=== PATIENT | female | born 1965 | race Caucasian/White ===

== ENCOUNTER → 2018-02-02 10:59 | Outpatient (CLI) | payer BC, SELFPAY ==
--- NOTE | 2018-02-02 11:13 | MRI_ITS ---
STUDY: MRA OF THE HEAD WITHOUT CONTRAST REASON FOR EXAM: Female, 52 years old. EXERTIONAL HEADACHE, MOSTLY RT SIDED X 5 DAYS. TECHNIQUE: 3-D [id number] (TOF) imaging was performed with MIPs. The study was performed unenhanced. COMPARISON: None. FINDINGS: Normal bilateral petrous carotid arteries. Normal right cavernous carotid artery with a normal supraclinoid bifurcation. Normal left cavernous carotid artery with a normal supraclinoid bifurcation. Normal right A1 segments of the anterior cerebral artery. Normal left A1 segments of the anterior cerebral artery. Normal intact anterior communicating artery (ACOM). Normal bilateral A2 segments of the anterior cerebral arteries. Normal right M1 and M2 segments of the middle cerebral arteries, with a normal M1 bifurcation. Normal left M1 and M2 segments of the middle cerebral arteries, with a normal M1 bifurcation. Normal right posterior communicating artery (PCOM). Normal left posterior communicating artery (PCOM). Normal bilateral vertebral arteries. Normal basilar artery with a normal basilar bifurcation. The visualized bilateral superior cerebellar (SCA) arteries are normal. Normal bilateral P1, P2 and visualized P3 segments of the posterior cerebral arteries. There is no demonstrated aneurysm of the [place]. There is no major vessel occlusion or hemodynamically significant stenosis. There is no demonstrated abnormality of the visualized brain. MRI/MRA Head ONLY without Contrast IMPRESSION: Normal MRA of the head Electronically Signed: Oriana Calloway MD at 13:07 EDT Tel , Service support ,
== END ==
PROVIDERS: Family Provider Family Medicine; PCP Family Medicine; Referring Provider Family Medicine; Visit Provider Family Medicine
DX: G44.84 Primary exertional headache (principal)
CPT/HCPCS: 70544

== ENCOUNTER → 2019-04-20 16:32 | Outpatient (CLI) | payer BC, SELFPAY ==
[2016-12-23 12:31] VITALS: BMI 31.1
--- NOTE | 2019-04-20 16:35 | RAD_ITS ---
STUDY: X-RAY CHEST REASON FOR EXAM: Female, 54 years old. Bronchitis TECHNIQUE: Frontal and lateral views of the chest. COMPARISON: None. FINDINGS: The lungs are clear and expanded. There is no demonstrated pleural abnormality. Normal size heart. Normal mediastinum and brandan. Normal visualized pulmonary arteries. Normal visualized aortic arch and descending thoracic aorta. Normal visualized thoracic spine. Normal visualized ribs, clavicles, and shoulders. There is no demonstrated abnormality of the visualized soft tissue structures of the upper abdomen. RAD/Chest PA and Lateral IMPRESSION: Normal x-ray examination of the chest. Electronically Signed: Reed Rice MD at 23:51 EST , Service support ,
== END ==
PROVIDERS: PCP Family Medicine; Referring Provider Family Medicine; Visit Provider Family Medicine
DX: J40 Bronchitis, not specified as acute or chronic (principal)
CPT/HCPCS: 71046

== ENCOUNTER → 2019-08-22 16:04 | Outpatient (CLI) | payer BC, SELFPAY ==
[2016-12-23 12:31] VITALS: BMI 31.1
--- NOTE | 2019-08-22 16:07 | RAD_ITS ---
STUDY: X-RAY CHEST REASON FOR EXAM: Female, 54 years old. chest wall pain TECHNIQUE: PA and lateral COMPARISON: April 20, 2019 FINDINGS: Minor scarring in the right middle lobe. No focal infiltration is observed There is no demonstrated pleural abnormality. Normal size heart. Normal mediastinum and brandan. Normal visualized pulmonary arteries. Normal visualized aortic arch and descending thoracic aorta. Normal visualized thoracic spine. Normal visualized ribs, clavicles, and shoulders. There is no demonstrated abnormality of the visualized soft tissue structures of the upper abdomen. No significant change since prior exam RAD/Chest PA and Lateral IMPRESSION: No acute cardiopulmonary pathology Electronically Signed: Moy Negrete MD at 22:28 EDT , Service support ,
--- OUTSIDE RECORDS SUMMARY | 2020-01-15 14:56 | XMS RPT_ITS | CCD ---
:1965 External Reference #:[id number] Author Organization [facility] Care Team Providers Name Role Phone Shemar Hooker Primary Care Provider John Pennington Primary Care Provider Allergies Reported Allergen Reaction(s) Severity Date of Onset Location Sulfonamides Other: See Comments 08-14-2015 - Iris weeks [facility] (Antibiotic) ([id number]) Medications Medication Name Sig Date Prescriber Location Aspirin ASPIRIN 325 MG TAB 01-27-[address] [facility] Take one (1) tablet (86093) daily . 0 01/27/2005 Active Comment: Take one (1) tablet daily . Ergocalciferol ergocalciferol, vitamin 12-01-2016 [facility] Provider [facility] D2, (JAMAR) 50,000 unit (8 6242) capsule Take by mouth. 0 12/01/2016 Active Comment: Take by mouth. Glucagon glucagon (GLUCAGON [facility]-18-2018 [facility] EM[facility]GENCY K[facility], HUMAN,) (4419 5) 1 mg solr Inject (1)one mg for insulin shock. 1 Each 1 01/18/2018 Active Comment: Inject (1)one mg for insulin shock. Insulin, Aspart, insulin aspart 03-05-2019 [facility] Patsy [facility] Human U-100 (NOVOLOG Katherine (52411) U-100 INSULIN ASPART) 100 unit/mL soln Up to 50 units daily in insulin pump E10.65. Dispense 90day supply 6 Vial 3 03/05/2019 Active Comment: Up to 50 units daily in insu skinny pump E10.65. Dispense 90day supply levothyroxine levothyroxine 12-12-2019 [facility] (SYNTHROID) 75 mcg [facility] (28562) tablet TAKE 1 TABLET DAILY 90 tablet 3 12/12/2019 Active levothyroxine 07-30-2019 - Dinorah Bradleyjuliethandreia [facility] (SYNTHROID) 50 mcg 12-12-2019 [facility] (76631) tablet TAKE 1 TABLET DAILY WITH 2 TABLETS ON SUNDAYS 102 tablet 3 07/30/2019 12/12/2019 Discontinued Comment: TAKE 1 TABLET DAILY TAKE 1 TABLET DAILY WITH 2 T ABLETS ON SUNDAYS Pravastatin pravastatin 12-05-2019 [facility] Mirnazac [facility] (PRAVACHOL) 20 mg Kellis (25267) tablet Take 0.5 tablets by mouth daily at bedtime. 30 tablet 3 12/05/2019 Active Comment: Take 0.5 tablets by mouth da samir at bedtime. rosuvastatin rosuvastatin (CRESTOR) 10-24-2018 [facility] Patsy [facility] 10 mg tablet Kell[facility] (63072) Indications: Other hyperlipidemia Take 1 tablet by mouth daily at bedtime. 90 tablet 3 10/24/2018 Active Comment: Take 1 tablet by mouth daily at bedtime. Problems Active Problems Category Problem Name Status Date Location Diabetes mellitus with Type 1 diabetes mellitus Active [facility] complications uncontrolled (91751) Diabetes mellitus without Type 1 diabetes mellitus Active [facility] complication (85672) Thyroid disorders Hypothyroidism Active [facility] (48427) Past or Other Problems Category Problem Name Status Date Location Residual codes; FH: Cardiomyopathy Completed 01-15-2016 - [facility] unclassified (45467) Residual codes; Family history of Completed 01-15-2016 - [facility] unclassified ischemic heart disease (4419 5) Results Result Name Value Range Unit Interpretation Flag Date Location [facility] on 2020-01-04 CNPN Telephone (ENDOSO) Normal 01-04-2020 [facility] OFELIA CUTLER ([id number]) 1965 [place] Date Time Provider Department ([id number]) 01/04/20 DINORAH ESTEVESO During your visit today, we recorded the following informati on about you: Sha Day MA, MA 01/04/2020 10:27 AM Signed Received CMN form. Will be in bin to review. Dinorah Esteves MD 01/08/2020 8:26 AM Signed I signed the form. Please fax it back with two office notes which is what they would like. Thanks. MD Sha Santana MA, MA 01/08/2020 2:41 PM Signed Faxed and filed in cabinet. Allergies As of Date: 01/04/2020 Noted Allergy Reaction SULFA (SULFONAMIDE ANTIBIOTICS) 08/14/2015 14 - Other: See C juliet Comments: Nausea Date Reviewed: 12/05/2019 Reviewed by: Veronika Wen Ma - Fully Assessed Reason for Visit: Forms [913] Prescriptions as of 01/04/2020 Sig: LEVOTHYROXINE 75 MCG TABLET TAKE 1 TABLET DAILY PRAVASTATIN 20 MG TABLET Take 0.5 tablets by mouth keisha* CONTOUR TEST STRIPS CONTOUR NEXT TEST STRIPS Use * LANCETS Use as instructed 4x daily E * INSULIN ASPART U-100 100 UNI* Up to 50 units daily in insul* ROSUVASTATIN 10 MG TABLET Take 1 tablet by mouth daily * GLUCAGON (HUMAN RECOMBINANT) * Inject (1)one mg for insulin * ERGOCALCIFEROL (VITAMIN D2) 1* Take by mouth. ASPIRIN 325 MG TABLET Take one (1) tablet daily . Problem List As Of Date 01/04/2020 Noted Resolved Uncontrolled type 1 diabetes mellitus (HCC) [E1* Simple goiter [E04.0] Pure hypercholesterolemia [E78.00] 01/27/2005 06/29/2016 Family history of hypertrophic cardiomyopathy [*01/15/2016 Family history of ischemic heart disease [Z82.4*01/15/2016 Fibroids [D21.9] 06/29/2016 02/02/2017 Encounter Status:Closed by SHA DAY MA on 01/08/20 tsh on 2019-12-05 TSH Qn 5.190 0.270-4.200 uU/mL High 12-05-2019 [facility] ([id number]) Comment: Performed By: #### FT4, TSH ####[facility] [address] [place], [place] [phone] progress on 2019-12 PROGRESS HNO ID: [id number] Normal 12-05-2019 [facility] Author: Dinorah Esteves [place] ([id number]) Service: ? Author Type: Physician Type: Progress Notes Filed: 12/05/2019 11:36 AM Note Text: Endocrine follow up CC type 1 diabetes on a pump, hypothyroid, hyperlipidemia, n eeds foot exam, due for thyroid ultrasound 54 y old woman here for follow up of type 1 diabetes On medtronic 670g pump She was having issues with her sensors. So for a week she took sensor off She tries to use auto mode She reports sometimes the auto mode gets in a cycle that say s sensor not ready Changes reservoir every 3 days She feels like her face is puffy Hard to lose weight Checking bg 3-4 x daily Ros otherwise negative. No change in pmh,family, surgical history ALLERGIES Allergen Reactions - Sulfa (Sulfonamide * Other: See Comments Nausea Current Outpatient Medications Medication Sig - blood sugar diagnostic (CONTOUR TEST STRIPS) test strip CO NTOUR NEXT TEST STRIPS Use as instructed 4x daily. On medtronic pump ich is compatible with this - levothyroxine (SYNTHROID) 50 mcg tablet TAKE 1 TABLET WITH 2 TABLETS ON SUNDAYS - Lancets lancets Use as instructed 4x daily E 10.65 - insulin aspart U-100 (NOVOLOG U-100 INSULIN ASPART) 100 un it/mL soln Up to 50 units daily in insulin pump E10.65. Dispense day sup ply - rosuvastatin (CRESTOR) 10 mg tablet Take 1 tablet by mouth daily at bedtime. - glucagon (GLUCAGON EMERGENCY KIT, HUMAN,) 1 mg solr Inject (1)one mg for insulin shock. - ergocalciferol, vitamin D2, (DRISDOL) 50,000 unit capsule Take by mouth. - ASPIRIN 325 MG TAB Take one (1) tablet daily . No current facility-administered medications for this visit. REVIEW OF SYSTEMS GENERAL: No weight loss, malaise or fevers., SEE HPI HEENT: Negative for frequent or significant headaches, No ch anges in hearing or vision, no nose bleeds or other nasal problems NECK: Negative for lumps, goiter, pain and significant neck swelling RESPIRATORY: +cough CARDIOVASCULAR: Negative for chest pain, leg swelling or pal pitations. GI: Negative for abdominal discomfort, blood in stools or bl ack stools or change in bowel habits MUSCULOSKELETAL: Negative for joint pain or swelling, back p ain or muscle pain. SKIN: Negative for lesions, rash, and itching. : No polyuria or dysuria. HEMATOLOGY/LYMPHOLOGY: Negative for prolonged bleeding, brui sing easily or swollen nodes. ENDOCRINE: Negative for cold or heat intolerance, polyuria, polydipsia and goiter. NEURO: No history of headaches, syncope, paralysis, seizures or tremors All other reviewed and negative other than HPI. BP 106/64 (BP Site: Right Arm, BP Position: Sitting, BP Cuff Size: Extra Large Adult) Pulse 71 Wt 94 kg (207 lb 4 oz) LMP 12/13 (Exact Date) BMI 32.95 kg/m? Physical Examination General: alert and oriented X 3, well appearing, pleasant an d in no acute distress HEENT: eyes without erythema or icterus, no neck lymphadenop athy or mass. Thyroid exam: No goiter or palpable thyroid nodule LN: No palpable cervical or supraclavicular lymphadenopathy. Skin: no rash, no nail changes Cardiac: RRR, no murmur gallop or rub, no peripheral edema Respiratory: CTA bilaterally, no wheezing or rhonchi Gastrointestinal: soft, NT, no palpable masses Musculoskeletal: no notable extremity weakness Neurological: symmetric reflexes bilateral upper and lower e xtremities. CNII-XII intact Feet:Shoes and socks removed, normal distal pulses and sensi tive to 10 gm monofilament (date of exam 12/05/19) Diagnoses: (E10.65) Uncontrolled type 1 diabetes mellitus with hypergly cemia (HCC) (primary encounter diagnosis)(Z96.41) Insulin pump status 7.9% improved but not at goal She reports automode is her favorite and numbers got better on automode (E04.1) Nontoxic single thyroid nodule (E03.9) Hypothyroidism, unspecified type (E78.49) Other hyperlipidemia 1) Type 1 diabetes uncontrolled on insulin pump Type 1 since her teens.A Blood glucose high post dinner. Advise increase prandial ins ulin pre dinner meal Change I:C ratio Advise 1 unit for 3.5g at 2pm -uses novolog in the pump -changes site every 3 days -fu EYE md -podiatry yearly -bp controlled -hypoglycemia protocol reviewed -Check bg before driving -glucagon for emergencies. -brother had HOCM. She had an echo. She had a stress test a few years. -has glucagon at home for emergencies 2) Hyperlipidemia: LDL not at goal. Was not tolerating rosuv astatin 5mg daily.She did not tolerate every other day. Will try pravasa tin 1/2 tab daily for now to see if she tolerates this. 3) Hypothyrodiism on 50mcg LT4 daily with 2 tabs on tuesday. Check tsh today 4) Thyroid nodule-thyroid nodules are subcentimeter. Repeat sonogram in 1-2 years Folow up in 3 months with Annie Esteves MD ENDOCRINE STAFF free t4 on Free T4 [Mass/Vol] 1.1 0.9-1.7 ng/dL Normal 12-05-2019 [facility] ([id number]) Comment: Performed By: #### FT4, TSH ####[facility] [address] [place], [place] [phone] cnov on 2019-12-05 CNOV Office Visit (ENDOSO) Normal 12-05-[address] [place] [address] [facility] OFELIA CUTLER ([id number]) 1965 [place] Date Time Provider Department ([id number]) 12/05/19 11:00 AM DINORAH ESTEVES During your visit today, we recorded the following informati on about you: Pulse Blood pressure Weight 71/minute 106/64 94 kg Dinorah Esteves MD 12/05/2019 11:36 AM Addendum Endocrine follow up CC type 1 diabetes on a pump , hypothyroid, hyperlipidemia, needs foot exam, due for thyroid ultrasound 54 y old woman here for follow up of type 1 diabetes On medtronic 670g pump She was having issues with her sensors. So for a week she took sensor off She tries to use auto mode She reports sometimes the auto mode gets in a cycle that says sensor not ready Changes reservoir every 3 days She feels like her face is puffy Hard to lose weight Checking bg 3-4 x daily Ros otherwise negative. No change in pmh,family, surgical history ALLERGIES Allergen Reactions - Sulfa (Sulfonamide * Other: See Comments Nausea Current Outpatient Medications Medication Sig - blood sugar diagnostic (CONTOUR TEST STRIPS) test strip CONTOUR NEXT TEST STRIPS Use as instructed 4x daily. On medtronic pump which is compatible with this - levothyroxine (SYNTHROID) 50 mcg tablet TAKE 1 TABLET DAILY WITH 2 TABLETS ON SUNDAYS - Lancets lancets Use as instructed 4x daily E 10.65 - insulin aspart U-100 (PILAR LOG U-100 INSULIN ASPART) 100 unit/mL soln Up to 50 units daily in insulin pump E10.65. Dispense supply - rosuvastatin (CRESTOR) 10 mg tablet Ta ke 1 tablet by mouth daily at bedtime. - glucagon (GLUCAGON EMERGENCY KIT, HUMAN,) 1 mg solr Inject (1)one mg for insulin shock. - ergocalciferol, vitamin D2, (DRISDOL) 50,000 unit capsule Take by mouth. - ASPIRIN 325 MG TAB Take one (1) tablet daily . No current facility-administered medications for this visit. REVIEW OF SYSTEMS GENERAL: No weight loss, malaise or fevers., SEE HPI HEENT: Negative for frequent or significant headaches, No changes in hearing or vision, no nose bleeds or other nasal problems NECK: Negative for lumps, goiter, pain and significant neck swelling RESPIRATORY: +cough CARDIOVASCULAR: Negative for chest pain, leg swelling or pal pitations. GI: Negative for abdominal discomfort, blood in stools or bl ack stools or change in bowel habits MUSCULOSKELETAL: Negative fo r joint pain or swelling, back pain or muscle pain. SKIN: Negative for lesions, rash, and itching. : No polyuria or dysuria. HEMATOLOGY/LYMPHOLOGY: Negative for prolonged bleeding, brui sing easily or swollen nodes. ENDOCRINE: Negative for cold or heat intolerance, polyuria, polydipsia and goiter. NEURO: No history of headaches, syncope, paralysis, seizures or tremors All other reviewed and negative other than HPI. BP 106/64 (BP Site: Right Arm, BP Positi on: Sitting, BP Cuff Size: Extra Large Adult) Pulse 71 Wt 94 kg (207 lb 4 oz) LMP 12/13/2016 (Exact Date) BMI 32.95 kg/m? Physical Examination General: alert and oriented X 3, well appearing, pleasant an d in no acute distress HEENT: eyes without erythema or icterus, no neck lymphadenop athy or mass. Thyroid exam: No goiter or palpable thyroid nodule LN: No palpable cervical or supraclavicular lymphadenopathy. Skin: no rash, no nail changes Cardiac: RRR, no murmur gallop or rub, no peripheral edema Respiratory: CTA bilaterally, no wheezing or rhonchi Gastrointestinal: soft, NT, no palpable masses Musculoskeletal: no notable extremity weakness Neurological: symmetric reflexes bilateral upper and lower e xtremities. CNII-XII intact Feet:Shoes and socks removed, normal distal pulses and sensi tive to 10 gm monofilament (date of exam 12/05/19) Diagnoses: (E10.65) Uncontrolled type 1 diabetes mellitus with hypergly cemia (HCC) (primary encounter diagnosis)(Z96.41) Insulin pump status 7.9% improved but not at goal She reports automode is her favorite and numbers got better on automode (E04.1) Nontoxic single thyroid nodule (E03.9) Hypothyroidism, unspecified type (E78.49) Other hyperlipidemia 1) Type 1 diabetes uncontrolled on insulin pump Type 1 since her teens.A Blood glucose high post dinn er. Advise increase prandial insulin pre dinner meal Change I:C ratio Advise 1 unit for 3.5g at 2pm -uses novolog in the pump -changes site every 3 days -fu EYE md -podiatry yearly -bp controlled -hypoglycemia protocol reviewed -Check bg before driving -glucagon for emergencies. -brother had HOCM. She had an echo. She had a stress test a few years. -has glucagon at home for emergencies 2) Hyperlipidemia: LDL not at goal. Was not tolerating rosuv astatin 5mg daily.She did not tolerate every other day. Will try pravasatin 1/2 tab daily for now to see if she tolerates this. 3) Hypothyrodiism on 50mcg LT4 daily with 2 tabs on tuesday . Check tsh today 4) Thyroid nodule-thyroid nodules are subcentimeter. Repea t sonogram in 1-2 years Folow up in 3 months with Annie Esteves MD ENDOCRINE STAFF Dinorah Esteves MD 12/05/2019 11:19 AM Signed Half tab pravastatin daily (10mg instead of 20mg) Allergies As of Date: 12/05/2019 Noted Allergy Reaction SULFA (SULFONAMIDE ANTIBIOTICS) 08/14/2015 14 - Other: See Mundo chung Comments: Nausea Date Reviewed: 12/05/2019 Reviewed by: Veronika Wen Ma - Fully Assessed Reason for Visit: Recheck [92] Primary Visit Diagnosis:Uncontrolled type 1 diabetes mellitu s with hyperglycemia (HCC) [E10.65] Other Visit Diagnoses:Nontoxic single thyroid nodule [E04.1] Hypothyroidism, unspecified type [E03.9] Insulin dose changed (HCC) [Z79.4] Other hyperlipidemia [E78.49] Insulin pump status [Z96.41] Nodular goiter [E04.9] Order(s):HEMOGLOBIN A1C (POC) [0133862] Order #: [id number] HEMOGLOBIN A1C (POC) [0608114] Order #: [id number]. #:[id number] pravastatin (PRAVACHOL) 20 mg tabletTake 0.5 tablets by mout h daily at bedtime.Disp: 30 tabletRfl: 3 TSH BLD [SQTSH] Order #: [id number] FUTURE T4 FREE/FREE THYROX [SQFT4] Order #: [id number] FUTURE LIPID PANEL BASIC [SQLIPB] Order #: [id number] FUTURE ALBUMIN/CREAT RATIO RND UR [SQUACR] Order #: [id number] FUTU RE COMP METABOLIC PANEL [SQCMP] Order #: [id number] FUTURE Prescriptions as of 12/05/2019 Sig: CONTOUR TEST STRIPS CONTOUR NEXT TEST STRIPS Use * LEVOTHYROXINE 50 MCG TABLET TAKE 1 TABLET DAILY WITH 2 TA* LANCETS Use as instructed 4x daily E * INSULIN ASPART U-100 100 UNI* Up to 50 units daily in insul* ROSUVASTATIN 10 MG TABLET Take 1 tablet by mouth daily * GLUCAGON (HUMAN RECOMBINANT) * Inject (1)one mg for insulin * ERGOCALCIFEROL (VITAMIN D2) 1* Take by mouth. ASPIRIN 325 MG TABLET Take one (1) tablet daily . PRAVASTATIN 20 MG TABLET Take 0.5 tablets by mouth keisha* Problem List As Of Date 12/05/2019 Noted Resolved Uncontrolled type 1 diabetes mellitus (HCC) [E1* Simple goiter [E04.0] Pure hypercholesterolemia [E78.00] 01/27/2005 06/29/2016 Family history of hypertrophic cardiomyopathy [*01/15/2016 Family history of ischemic heart disease [Z82.4*01/15/2016 Fibroids [D21.9] 06/29/2016 02/02/2017 Other instructions from your clinician: Half tab pravastatin daily (10mg instead of 20mg) Prescriptions ordered this encounter Disp Refills Start End PRAVASTATIN 20 MG TABLET 30 t* 3 12/05/2019 Route: ORAL Sig: Take 0.5 tablets by mouth daily at bedtime. Encounter Status:Closed by DINORAH ESTEVES MD on 12/05/19 potassium on 2019-0 8-31 Potassium [Moles/Vol] 4.5 3.7-5.1 mmol/L Normal 12-03-19 [facility] ([id number]) cnpn on 2019-10-29 CNPN Telephone (ENDOSO) Normal 10-29-2019 [place] OFELIA Ramírez ([id number]) 1965 [place] Date Time Provider Department ([id number]) 10/29/19 DINORAH CAIN (HIST)ENDOSChina During your visit today, we recorded the following informati on about you: Veronika Wen Ma 10/29/2019 3:18 PM Signed [facility] su [place] approval for Contour Next Test V I Strip 7-22-20-10/23/20placed in file Allergies As of Date: 10/29/2019 Noted Allergy Reaction SULFA (SULFONAMIDE ANTIBIOTICS) 08/14/2015 14 - Other: See C omments Comments: Nausea Date Reviewed: 06/06/2019 Reviewed by: Veronika Wen Ma - Fully Assessed Reason for Visit: PA approval [Other] Prescriptions as of 10/29/2019 Sig: CONTOUR TEST STRIPS CONTOUR NEXT TEST STRIPS Use * LEVOTHYROXINE 50 MCG TABLET TAKE 1 TABLET DAILY WITH 2 TA* LANCETS Use as instructed 4x daily E * INSULIN ASPART U-100 100 UNI* Up to 50 units daily in insul* ROSUVASTATIN 10 MG TABLET Take 1 tablet by mouth daily * GLUCAGON (HUMAN RECOMBINANT) * Inject (1)one mg for insulin * ERGOCALCIFEROL (VITAMIN D2) 1* Take by mouth. ASPIRIN 325 MG TABLET Take one (1) tablet daily . Problem List As Of Date 10/29/2019 Noted Resolved Uncontrolled type 1 diabetes mellitus (HCC) [E1* Simple goiter [E04.0] Pure hypercholesterolemia [E78.00] 01/27/2005 06/29/2016 Family history of hypertrophic cardiomyopathy [*01/15/2016 Family history of ischemic heart disease [Z82.4*01/15/2016 Fibroids [D21.9] 06/29/2016 02/02/2017 Encounter Status:Closed by VERONIKA WEN MA on 10/29/19 [facility] screening on 21-09-25 [facility] SCREENING * * *Final Report* * * Normal [facility] DATE OF EXAM: Sep 28 2019 3:37PM [place] ([id number]) RUST 0581 - [facility] SCREENING / PROCEDURE REASON: multiple diagnoses * * * * Physician Interpretation * * * * RESULT: #[id number] - [facility] SCREENING BILATERAL DIGITAL SCREENING MAMMOGRAM WITH CAD: 09/28/2019 HISTORY: Multiple Diagnoses /Screening Mammogram - patient r eports NO breast symptoms /Priors available for comparison. RESULT: TECHNIQUE: The study was acquired using full field digital t echnology and interpreted from soft copy. Current study was also evaluated with a Computer Aided Detec tion (CAD). Comparison is made to exams dated: 08/30/2018 mammogram, 2017 mammogram, and 08/11/2016 mammogram - [facility]. There are scattered fibroglandular elements in both breasts. No significant masses, calcifications, or other findings are seen in either breast. There has been no significant interval change. IMPRESSION: NEGATIVE There is no mammographic evidence of malignancy. A 1 year sc reening mammogram is recommended. Taylor saldana/teresa:09/28/2019 16:42:49 Banjo Repairer(s): Luisana Mancia RT(R)(M), [facility] letter sent: Normal over 40 Mammogram BI-RADS: 1 Negative Multiple national specialty organizations have released jorge st cancer screening guidelines for women at average risk for developin g breast cancer - guidelines that are based on both evidence and opin ion, yet differ on when to start and how often to screen for breast c ancer. With representation from Breast Imaging, Internal Medicine, Women 's Health, Family Medicine, and Medical/Surgical Oncology, the [facility] has carefully reviewed the data and reached the following consen lj: 1) All women should engage in shared decision-making with eir providers to decide when to start and how often to screen; 2) All women should have the opportunity to start screening mammography at age 40; 3) For women ages 45-55, we recommend annual screening mammo grams; 4) For women ages 55 and over, we support both the transitio n from an annual to a biennial interval if this aligns more with patie nt's values and preferences, or continuation with annual screening; 5) All women should discuss with their providers when to sto p screening mammograms. Hvac Sheet Metal Installer Helper: Teresa Transcribe Date/Time: Sep 28 2019 3:36P Dictated by: TAYLOR SHELTON MD This examination was interpreted and the report reviewed and electronically signed by: TAYLOR SHELTON MD on Sep 28 2019 4:42PM EST [id number] cnco on 2019-09-28 CNCO HNO ID: [id number] Normal 09-28-2019 [facility] Author: Mammography Coordinator ([id number]) Service: ? Author Type: Physician Type: Letter Filed: 10/01/2019 11:35 PM Note Text: September 28, 2019 PID: [id number] Ofelia Cutler [facility] [facility] [place] [address] Dear Ms. Cutler, We are pleased to inform you that the results of your recent breast imaging exam on 09/28/2019 are normal. Early detection of cancer is very important. We also underst and recommendations regarding breast cancer screening are contro versial. Please discuss with your primary care provider which strateg y is best for you and whether a mammogram is right for you. Your imaging studies and report will be kept on file at [facility] as part of your permanent medical record and are available f or your continuing care. Thank you for allowing us to help in meeting your health car e needs. Sincerely, Dr. Shelton Interpreting Radiologist [facility] (Normal over 40) obsolete on 2019-08 OBSOLETE Refill (ENDOSO) Normal 08-15-[address] [facility] OFELIA CUTLER ([id number]) 1965 [facility] Time Provider Department ([id number]) 08/15/19 DINORAH ESTEVES ENDOSO During your visit today, we recorded the following informati on about you: Veronika Wen Ma 08/16/2019 8:32 AM Signed 06/06/19 last appt. Allergies As of Date: 08/15/2019 Noted Allergy Reaction SULFA (SULFONAMIDE ANTIBIOTICS) 08/14/2015 14 - Other: See Mundo chung Comments: Nausea Date Reviewed: 06/06/2019 Reviewed by: Veronika Wen Ma - Fully Assessed Reason for Visit: Refill Request [94] Visit Diagnosis:Uncontrolled type 1 diab etes mellitus with hyperglycemia (HCC) [E10.65] Order(s):blood sugar diagnostic (CONTOUR TEST STRIPS) test stripCONTOUR NEXT TEST STRIPS Use as instructed 4x daily. On medtronic pump wh ich is compatible with thisDisp: 400 StripRfl: 3 Prescriptions as of 08/15/2019 Sig: BLOOD SUGAR DIAGNOSTIC STRIPS CONTOUR NEXT TEST STRIPS Use * LEVOTHYROXINE 50 MCG TABLET TAKE 1 TABLET DAILY WITH 2 TA* LANCETS Use as instructed 4x daily E * INSULIN ASPART U-100 100 UNI* Up to 50 units daily in insul* ROSUVASTATIN 10 MG TABLET Take 1 tablet by mouth daily * GLUCAGON (HUMAN RECOMBINANT) * Inject (1)one mg for insulin * ERGOCALCIFEROL (VITAMIN D2) 1* Take by mouth. ASPIRIN 325 MG TABLET Take one (1) tablet daily . Problem List As Of Date 08/15/2019 Noted Resolved Uncontrolled type 1 diabetes mellitus (HCC) [E1* Simple goiter [E04.0] Pure hypercholesterolemia [E78.00] 01/27/2005 06/29/2016 Family history of hypertrophic cardiomyopathy [*01/15/2016 Family history of ischemic heart disease [Z82.4*01/15/2016 Fibroids [D21.9] 06/29/2016 02/02/2017 Prescriptions ordered this encounter Disp Refills Start End BLOOD SUGAR DIAGNOSTIC STRIPS 400 * 3 08/17/2019 Sig: CONTOUR NEXT TEST STRIPS Use as instructed 4x daily. On medtronic pump which is compatible with this Medications Discontinued During This Encounter blood sugar diagnostic (CONTOUR TEST* 400 * 3 03/05/201908/16 Sig: CONTOUR NEXT TEST STRIP S Use as instructed 4x daily. On medtronic pump which is compatible with this Disc: Reason for discontinue is not on file. Encounter Status:Closed by DINORAH ESTEVES MD on cnpn on 2019-08-01 NATHALIEN Telephone (ENDOSO) Normal 08-01-2019 [place] OFELIA Ramírez ([id number]) 1965 F [place] Date Time Provider Department ([id number]) 08/01/19 DINORAH ESTEVES ENDOSO During your visit today, we recorded the following informati on about you: Angel Luis Saldaña Ma 08/01/2019 3:25 PM Signed Received form from [employer] re: Medtronic Mini Med pump 67 0 [address] Faxing over to Dr Katherine Esteves MD 08/02/2019 10:01 AM Signed The form was signed. Please fax back. Thanks MD Angel Luis Santana Ma 08/02/2019 3:20 PM Signed Form wasn't signed Please sign Angel Luis Saldaña Ma 08/02/2019 4:47 PM Signed Faxed form to [employer] Dinorah Esteves MD 08/03/2019 8:27 AM Signed Signed form and sent back to you. Dinorah Esteves MD Allergies As of Date: 08/01/2019 Noted Allergy Reaction SULFA (SULFONAMIDE ANTIBIOTICS) 08/14/2015 14 - Other: See Mundo chung Comments: Nausea Date Reviewed: 06/06/2019 Reviewed by: Veronika Wen Ma - Fully Assessed Reason for Visit: [employer] forms [Other] Prescriptions as of 08/01/2019 Sig: LEVOTHYROXINE 50 MCG TABLET TAKE 1 TABLET DAILY WITH 2 TA* LANCETS Use as instructed 4x daily E * INSULIN ASPART U-100 100 UNI* Up to 50 units daily in insul* CONTOUR TEST STRIPS CONTOUR NEXT TEST STRIPS Use * ROSUVASTATIN 10 MG TABLET Take 1 tablet by mouth daily * GLUCAGON (HUMAN RECOMBINANT) * Inject (1)one mg for insulin * ERGOCALCIFEROL (VITAMIN D2) 1* Take by mouth. ASPIRIN 325 MG TABLET Take one (1) tablet daily . Problem List As Of Date 08/01/2019 Noted Resolved Uncontrolled type 1 diabetes mellitus (HCC) [E1* Simple goiter [E04.0] Pure hypercholesterolemia [E78.00] 01/27/2005 06/29/2016 Family history of hypertrophic cardiomyopathy [*01/15/2016 Family history of ischemic heart disease [Z82.4*01/15/2016 Fibroids [D21.9] 06/29/2016 02/02/2017 Encounter Status:Closed by ANGEL LUIS SALDAÑA MA on 08/02/19 obsolete on 2019-07 OBSOLETE Refill (ENDOSO) Normal 07-28-[address] [facility] OFELIA CUTLER ([id number]) 1965 F [facility] Time Provider Department ([id number]) 07/28/19 DINORAH ESTEVES ENDOSO During your visit today, we recorded the following informati on about you: Veronika Wen Ma 07/30/2019 9:50 AM Signed 06/06/19 last appt. Allergies As of Date: 07/28/2019 Noted Allergy Reaction SULFA (SULFONAMIDE ANTIBIOTICS) 08/14/2015 14 - Other: See Mundo chung Comments: Nausea Date Reviewed: 06/06/2019 Reviewed by: Veronika Wen Ma - Fully Assessed Reason for Visit: Refill Request [94] Order(s):levothyroxine (SYNTHROID) 50 mcg tabletTAKE 1 TABLE T DAILY WITH 2 TABLETS ON SUNDAYSDisp: 102 tabletRfl: 3 Prescriptions as of 07/28/2019 Sig: LEVOTHYROXINE 50 MCG TABLET TAKE 1 TABLET DAILY WITH 2 TA* LANCETS Use as instructed 4x daily E * INSULIN ASPART U-100 100 UNI* Up to 50 units daily in insul* CONTOUR TEST STRIPS CONTOUR NEXT TEST STRIPS Use * ROSUVASTATIN 10 MG TABLET Take 1 tablet by mouth daily * GLUCAGON (HUMAN RECOMBINANT) * Inject (1)one mg for insulin * ERGOCALCIFEROL (VITAMIN D2) 1* Take by mouth. ASPIRIN 325 MG TABLET Take one (1) tablet daily . Problem List As Of Date 07/28/2019 Noted Resolved Uncontrolled type 1 diabetes mellitus (HCC) [E1* Simple goiter [E04.0] Pure hypercholesterolemia [E78.00] 01/27/2005 06/29/2016 Family history of hypertrophic cardiomyopathy [*01/15/2016 Family history of ischemic heart disease [Z82.4*01/15/2016 Fibroids [D21.9] 06/29/2016 02/02/2017 Prescriptions ordered this encounter Disp Refills Start End LEVOTHYROXINE 50 MCG TABLET 102 * 3 07/30/2019 Sig: TAKE 1 TABLET DAILY WITH 2 TABLETS ON SUNDAYS Medications Discontinued During This Encounter levothyroxine (SYNTHROID) 50 mcg tab* 102 * 3 07/04/20182019 Sig: Take one tab daily with 2 tabs on sundays Disc: Reason for discontinue is not on file. Encounter Status:Closed by DINORAH ESTEVES MD on us thyroid/parathyroid on 2019-06-07 US THYROID/PARATHYROID * * *Final Report* * * Norm al 06-07-2019 [place] DATE OF EXAM: Jun 07 2019 4:09PM [facility] [id number] - US THYROID/PARATHYROID / [place] PROCEDURE REASON: Nontoxic single thyroid nodule ([id number]) * * * * Physician Interpretation * * * * EXAMINATION: THYROID ULTRASOUND CLINICAL HISTORY: Nontoxic single thyroid nodule TECHNIQUE: Sonography and Doppler imaging of the thyroid was performed. Images were obtained and stored in a permanent archive. MQ: UST_1 COMPARISON: Ultrasound thyroid on 01/27/2018 RESULT: Right Lobe: 4.7 x 2.1 x 1.3 cm; diffusely heterogeneous echo texture, expected vascular flow. Left Lobe: 4.5 x 1.9 x 1.4 cm; diffusely heterogeneous echot exture, expected vascular flow. Isthmus: 0.3 cm The most suspicious thyroid nodule(s) (up to four) as below: An echogenic nodule is again demonstrated in the posterior m id right thyroid measuring 6 x 6 x 5 mm, previously 7 x 7 x 5 mm. IMPRESSION: Heterogeneous echotexture of the bilateral thyroid with stab le right thyroid nodule. Hvac Sheet Metal Installer Helper: PSCB Transcribe Date/Time: Jun 07 2019 4:11P Dictated by : HAYDEN LYNNE MD This examination was interpreted and the report reviewed and electronically signed by: HAYDEN LYNNE MD on Jun 07 2019 4:14PM EST [id number] progress on 2019-06 PROGRESS HNO ID: [id number] Normal 06-07-2019 [facility] Author: Nick (Melany) Lavon [place] ([id number]) Service: ? Author Type: Burr Bench Hand Type: Progress Notes Filed: 06/07/2019 4:10 PM Note Text: Radiology Service Progress Note PATIENT NAME: Ofelia Cutler DATE OF SERVICE: June 07, 2019 TIME: 4:10 PM PATIENT IDENTITY VERIFICATION COMPLETED USING TWO (2) IDENTI FIERS: Name and Date of confirmed by patient verbally. PATIENT GENDER DATA: Female. status: : No status: N/A PATIENT RELEVANT IMPLANT DATA REVIEWED: Not Applicable RADIOLOGY DEPARTMENT: Ultrasound PERIPHERAL IV DATA: Not applicable SIGNED BY: NICK CASTANEDA RDMS RVT June 07, 2019 4:10 PM tsh on 2019-06-06 TSH Qn 4.020 0.270-4.200 uU/mL Normal 06-06-2019 [facility] ([id number]) Comment: Performed By: #### HBA1C, TS H, LIPB, BMP #### [facility] [address] [place] [id number] progress on 2019-06 PROGRESS HNO ID: [id number] Normal 06-06-2019 [facility] Author: Dinorah Esteves [place] ([id number]) Service: ? Author Type: Physician Type: Progress Notes Filed: 06/06/2019 10:10 AM Note Text: Endocrine follow up CC type 1 diabetes on a pump, hypothyroid, hyperlipidemia, n eeds foot exam, due for thyroid ultrasound 54 y old woman here for follow up of type 1 diabetes On medtronic 670g pump Asks for calibration every 12 hours but sometimes more She reports that she has been in auto mode more often than l ast visit She calibrated last night before going to bed. Likes auto mode Not taking the rosuvastatin. Taking two tab Tuesday LT4 50mg and 1 tab rest of the week Had viral illness/flu X2 and recently also was tx with ABX Still coughing Ros otherwise negative. No change in pmh,family, surgical history ALLERGIES Allergen Reactions - Sulfa (Sulfonamide * Other: See Comments Nausea Current Outpatient Medications Medication Sig - Lancets lancets Use as instructed 4x daily E 10.65 - insulin aspart U-100 (NOVOLOG U-100 INSULIN ASPART) 100 un it/mL soln Up to 50 units daily in insulin pump E10.65. Dispense sup ply - blood sugar diagnostic (CONTOUR TEST STRIPS) test strip CO NTOUR NEXT TEST STRIPS Use as instructed 4x daily. On medtronic pump wh ich is compatible with this - rosuvastatin (CRESTOR) 10 mg tablet Take 1 tablet by mouth daily at bedtime. - levothyroxine (SYNTHROID) 50 mcg tablet Take one tab daily with 2 tabs on sundays - glucagon (GLUCAGON EMERGENCY KIT, HUMAN,) 1 mg solr Inject (1)one mg for insulin shock. - ergocalciferol, vitamin D2, (DRISDOL) 50,000 unit capsule Take by mouth. - ASPIRIN 325 MG TAB Take one (1) tablet daily . No current facility-administered medications for this visit. REVIEW OF SYSTEMS GENERAL: No weight loss, malaise or fevers., SEE HPI HEENT: Negative for frequent or significant headaches, No ch anges in hearing or vision, no nose bleeds or other nasal problems NECK: Negative for lumps, goiter, pain and significant neck swelling RESPIRATORY: +cough CARDIOVASCULAR: Negative for chest pain, leg swelling or pal pitations. GI: Negative for abdominal discomfort, blood in stools or bl ack stools or change in bowel habits MUSCULOSKELETAL: Negative for joint pain or swelling, back p ain or muscle pain. SKIN: Negative for lesions, rash, and itching. : No polyuria or dysuria. HEMATOLOGY/LYMPHOLOGY: Negative for prolonged bleeding, brui sing easily or swollen nodes. ENDOCRINE: Negative for cold or heat intolerance, polyuria, polydipsia and goiter. NEURO: No history of headaches, syncope, paralysis, seizures or tremors All other reviewed and negative other than HPI. BP 100/60 (BP Site: Right Arm, BP Position: Sitting, BP Cuff Size: Extra Large Adult) Pulse 72 Wt 93.4 kg (206 lb) LMP 12/14/19 17 (Exact Date) BMI 32.75 kg/m? Physical Examination General: alert and oriented X 3, well appearing, pleasant an d in no acute distress HEENT: eyes without erythema or icterus, no neck lymphadenop athy or mass. Thyroid exam: No goiter or palpable thyroid nodule LN: No palpable cervical or supraclavicular lymphadenopathy. Skin: no rash, no nail changes Cardiac: RRR, no murmur gallop or rub, no peripheral edema Respiratory: CTA bilaterally, no wheezing or rhonchi Gastrointestinal: soft, NT, no palpable masses Musculoskeletal: no notable extremity weakness Neurological: symmetric reflexes bilateral upper and lower e xtremities. CNII-XII intact Feet:Shoes and socks removed, normal distal pulses and sensi tive to 10 gm monofilament Diagnoses: (E10.65) Uncontrolled type 1 diabetes mellitus with hypergly cemia (HCC) (primary encounter diagnosis)(Z96.41) Insulin pump status (E04.1) Nontoxic single thyroid nodule (E03.9) Hypothyroidism, unspecified type (E78.49) Other hyperlipidemia 1) Type 1 diabetes uncontrolled on insulin pump Type 1 since her teens.A1c 8.3% which is worse than last visit. The tracings look much better than an a1c of 8.3% so the poor control may have been prior to this. She is still having some hyperglycemia post lunch and dinner so will adju st I:C ratios. See below. Downloaded pump and CGM Has kaylin phenomenon. -I advise she call [employer] given issues with sensor calibr ation. She has some high after lunch and after dinner. Change I:C ratio Advise 1 unit for 4g with breakfast Advise 1 unit for 3.5g at 2pm -uses novolog in the pump -changes site every 3 days -fu EYE md -podiatry yearly. Foot exam done today -bp controlled -hypoglycemia protocol reviewed -Check bg before driving -check BG prior to driving. 2) Hyperlipidemia: LDL not at goal. Was not tolerating rosuv astatin 5mg daily. Advise trying to take it at least every other day.she says she will do so. Lipid panel is in but will likely be abnormal. 3) Hypothyrodiism on 50mcg LT4 daily with 2 tabs on tuesday. Check TSH (ordered) 4) Thyroid nodule-She did not get neck sonogram.I advise krupa t she do so. I will review the images. Dinorah Esteves MD ENDOCRINE STAFF lipid panel, basic on 2019-06-06 Cholesterol [Mass/Vol] 206 <200 mg/dL High 020 [facility] ([id number]) Comment: Result Comment: <200 mg/dL, Desirable 200-239 mg/dL, Borderline hi gh >239 mg/dL, High Performed By: #### HBA1C, TS H, LIPB, BMP #### [facility] [address] [place], [place] [address] Cholesterol in HDL 51 >39 mg/dL Normal 06-06-2019 [facility] [Mass/Vol] ([id number]) Comment: Result Comment: 40-59 mg/dL, Acceptable >59 mg/dL, High: Negative ri sk factor for coronary heart disease <40 mg/dL, Low: Positive ris k factor for coronary heart disease Performed By: #### HBA1C, TS H, LIPB, BMP #### [facility] [place] [place] [address] [place], [place] [address] Cholesterol in LDL 145 <100 mg/dL High 06-06-2019 [facility] [Mass/Vol] ([id number]) Comment: Result Comment: <100 mg/dL, Optimal 100-129 mg/dL, Near optimal/ above optimal 130-159 mg/dL, Borderline hi gh 160-189 mg/dL, High >189 mg/dL, Very high Secondary prevention optimal LDL Cholesterol levels are recommended to be < 70 mg/dL Performed By: #### HBA1C, TS H, LIPB, BMP #### [facility] [address] [place], [place] [address] Fasting Time 12 hrs Normal 06-06-2019 [facility] ([id number]) Comment: Performed By: #### HBA1C, TS H, LIPB, BMP #### [facility] [place] [address] [place], [place] [address] LDL:HDL Ratio 2.84 <2.54 High 06-06-2019 [facility] ([id number]) Comment: Result Comment: Reference: 1. National Cholesterol Educ ation Program ATP III Guideline At-A-Glance Quick Desk Reference: National Heart, Lung, and Blood [place]. National Institutes of Health. 2001: NIH Publication No. 01-3305. 2. An International Atherosc lerosis Society position paper: global recommendations for the management of dyslipidemia: executive summary, Atherosclerosis. 2014: 232(2):410-413. Performed By: #### HBA1C, TS H, LIPB, BMP #### [facility] [address] [place], [place] [address] Non HDL Cholesterol 155 <130 mg/dL High 06-06-2019 [facility] ([id number]) Comment: Result Comment: <130 mg/dL, Optimal 130-159 mg/dL, Near optimal/ above optimal 160-189 mg/dL, Borderline hi gh 190-219 mg/dL, High >219 mg/dL, Very high Secondary prevention optimal non HDL Cholesterol levels are recommended to be < 100 mg/dL Performed By: #### HBA1C, TS H, LIPB, BMP #### [facility] [address] [place] [address] TC:HDL Ratio 4.04 <5.10 Normal 06-06-2019 [facility] ([id number]) Comment: Performed By: #### HBA1C, TS H, LIPB, BMP #### [facility] [address] [place] [address] Triglyceride [Mass/Vol] 52 <150 mg/dL Normal 2019 [facility] ([id number]) Comment: Result Comment: <150 mg/dL, Normal 150-199 mg/dL, Borderline hi gh 200-499 mg/dL, High >499 mg/dL, Very high Performed By: #### HBA1C, TS H, LIPB, BMP #### [facility] [address] [place] [address] VLDL Cholesterol 10 <30 mg/dL Normal 06-06-2019 [facility] ([id number]) Comment: Performed By: #### HBA1C, TS H, LIPB, BMP #### [facility] [address] [place] [id number] hemoglobin a1c on 2 HbA1c (Bld) [Mass fraction] 194 mg/dL Normal [facility] (64091) Comment: Result Comment: eAG: (Estima cara average glucose) is a calculated value from HgbA1c and is service center representative of the average blood glucose level in the last 2-3 month period. Performed By: #### HBA1C, TS H, LIPB, BMP #### [facility] [address] [place], [place] [address] HbA1c (Bld) [Mass fraction] 8.4 4.3-5.6 % High [facility] ([id number]) Comment: Result Comment: [place] Association guidelines indicate that patients with HgbA1c in the range 5.7-6.4% are at increased risk for development of diabetes, and intervention by lifestyle modification may be beneficial. HgbA1c greater o r equal to 6.5% is considered diagnostic of diabetes. Performed By: #### HBA1C, TS H, LIPB, BMP #### [facility] [address] [place], [place] [address] cnov on 2019-06-06 CNOV Office Visit (ENDOSO) Normal 06-06-[address] [place] [address] OFELIA Ramírez ([id number]) 1965 [facility] Date Time Provider Department ([id number]) 06/06/19 9:40 AM DINORAH ESTEVES ENDOSO During your visit today, we recorded the following informati on about you: Pulse Blood pressure Weight 72/minute 100/60 93.4 kg Dinorah Esteves MD 06/06/2019 10:10 AM Addendum Endocrine follow up CC type 1 diabetes on a pump , hypothyroid, hyperlipidemia, needs foot exam, due for thyroid ultrasound 54 y old woman here for follow up of type 1 diabetes On medtronic 670g pump Asks for calibration every 12 hours but sometimes more She reports that she has been in auto mode more often than l ast visit She calibrated last night before going to bed. Likes auto mode Not taking the rosuvastatin. Taking two tab Tuesday LT4 50mg and 1 tab rest of the week Had viral illness/flu X2 and recently also was tx with ABX Still coughing Ros otherwise negative. No change in pmh,family, surgical history ALLERGIES Allergen Reactions - Sulfa (Sulfonamide * Other: See Comments Nausea Current Outpatient Medications Medication Sig - Lancets lancets Use as instructed 4x daily E 10.65 - insulin aspart U-100 (PILAR LOG U-100 INSULIN ASPART) 100 unit/mL soln Up to 50 units daily in insulin pump E10.65. Dispense supply - blood sugar diagnostic (CONTOUR TEST STRIPS) test strip CONTOUR NEXT TEST STRIPS Use as instructed 4x daily. On medtronic pump which is compatible with this - rosuvastatin (CRESTOR) 10 mg tablet Ta ke 1 tablet by mouth daily at bedtime. - levothyroxine (SYNTHROID) 50 mcg tablet Take one tab with 2 tabs on sundays - glucagon (GLUCAGON EMERGENCY KIT, HUMAN,) 1 mg solr Inject (1)one mg for insulin shock. - ergocalciferol, vitamin D2, (DRISDOL) 50,000 unit capsule Take by mouth. - ASPIRIN 325 MG TAB Take one (1) tablet daily . No current facility-administered medications for this visit. REVIEW OF SYSTEMS GENERAL: No weight loss, malaise or fevers., SEE HPI HEENT: Negative for frequent or significant headaches, No changes in hearing or vision, no nose bleeds or other nasal problems NECK: Negative for lumps, goiter, pain and significant neck swelling RESPIRATORY: +cough CARDIOVASCULAR: Negative for chest pain, leg swelling or pal pitations. GI: Negative for abdominal discomfort, blood in stools or bl ack stools or change in bowel habits MUSCULOSKELETAL: Negative fo r joint pain or swelling, back pain or muscle pain. SKIN: Negative for lesions, rash, and itching. : No polyuria or dysuria. HEMATOLOGY/LYMPHOLOGY: Negative for prolonged bleeding, brui sing easily or swollen nodes. ENDOCRINE: Negative for cold or heat intolerance, polyuria, polydipsia and goiter. NEURO: No history of headaches, syncope, paralysis, seizures or tremors All other reviewed and negative other than HPI. BP 100/60 (BP Site: Right Arm, BP Positi on: Sitting, BP Cuff Size: Extra Large Adult) Pulse 72 Wt 93.4 kg (206 lb) LMP 12/13/2016 ( Exact Date) BMI 32.75 kg/m? Physical Examination General: alert and oriented X 3, well appearing, pleasant an d in no acute distress HEENT: eyes without erythema or icterus, no neck lymphadenop athy or mass. Thyroid exam: No goiter or palpable thyroid nodule LN: No palpable cervical or supraclavicular lymphadenopathy. Skin: no rash, no nail changes Cardiac: RRR, no murmur gallop or rub, no peripheral edema Respiratory: CTA bilaterally, no wheezing or rhonchi Gastrointestinal: soft, NT, no palpable masses Musculoskeletal: no notable extremity weakness Neurological: symmetric reflexes bilateral upper and lower e xtremities. CNII-XII intact Feet:Shoes and socks removed, normal distal pulses and sensi tive to 10 gm monofilament Diagnoses: (E10.65) Uncontrolled type 1 diabetes mellitus with hypergly cemia ([facility]) (primary encounter diagnosis)(Z96.41) Insulin pump status (E04.1) Nontoxic single thyroid nodule (E03.9) Hypothyroidism, unspecified type (E78.49) Other hyperlipidemia 1) Type 1 diabetes uncontrol led on insulin pump Type 1 since her teens.A1c 8.3% which is worse than last visit. The tracings look much better than an a1c of 8.3% so the poor control may have been p rior to this. She is still having some hyperglycemia post lunch and dinner so will adjust I:C ratio s. See below. Downloaded pump and CGM Has kaylin phenomenon. -I advise she call [employer] given issues with sensor calibr ation. She has some high after lunch and after dinner. Change I:C ratio Advise 1 unit for 4g with breakfast Advise 1 unit for 3.5g at 2pm -uses novolog in the pump -changes site every 3 days -fu EYE md -podiatry yearly. Foot exam done today -bp controlled -hypoglycemia protocol reviewed -Check bg before driving -check BG prior to driving. 2) Hyperlipidemia: LDL not at goal. Was not tolerating rosuvastatin 5mg daily. Advise trying to take it at least every other day.she says s he will do so. Lipid panel is in but will likely be abnormal. 3) Hypothyrodiism on 50mcg L T4 daily with 2 tabs on tuesday. Check TSH (ordered) 4) Thyroid nodule-She did not get neck sonogram.I advise krupa t she do so. I will review the images. Dinorah Esteves MD ENDOCRINE STAFF Referring Provider: SELF [[id number]] Allergies As of Date: 06/06/2019 Noted Allergy Reaction SULFA (SULFONAMIDE ANTIBIOTICS) 08/14/2015 14 - Other: See C omments Comments: Nausea Date Reviewed: 06/06/2019 Reviewed by: Veronika Wen Ma - Fully Assessed Reason for Visit: F/U Diabetes 6 Month [446] Primary Visit Diagnosis:Uncontrolled type 1 diabetes mellitu s with hyperglycemia (HCC) [E10.65] Other Visit Diagnoses:Nontoxic single thyroid nodule [E04.1] Hypothyroidism, unspecified type [E03.9] Insulin pump status [Z96.41] Other hyperlipidemia [E78.49] Insulin dose changed (HCC) [Z79.4] Order(s):HB A1C B/O [3568466] Order #: [id number] THYROID/PARATHYROID [[id number]] Order #: [id number] FUTURE HEMOGLOBIN A1C (POC) [[id number]] Order #: [id number] #:[id number] Prescriptions as of 06/06/2019 Sig: LANCETS Use as instructed 4x daily E * INSULIN ASPART U-100 100 UNI* Up to 50 units daily in insul* CONTOUR TEST STRIPS CONTOUR NEXT TEST STRIPS Use * ROSUVASTATIN 10 MG TABLET Take 1 tablet by mouth daily * LEVOTHYROXINE 50 MCG TABLET Take one tab daily with 2 tab* GLUCAGON (HUMAN RECOMBINANT) * Inject (1)one mg for insulin * ERGOCALCIFEROL (VITAMIN D2) 1* Take by mouth. ASPIRIN 325 MG TABLET Take one (1) tablet daily . Problem List As Of Date 06/06/2019 Noted Resolved Uncontrolled type 1 diabetes mellitus (HCC) [E1* Simple goiter [E04.0] Pure hypercholesterolemia [E78.00] 01/27/2005 06/29/2016 Family history of hypertrophic cardiomyopathy [*01/15/2016 Family history of ischemic heart disease [Z82.4*01/15/2016 Fibroids [D21.9] 06/29/2016 02/02/2017 Encounter Status:Closed by DINORAH ESTEVES MD on 06/06/19 basic metabolic panl on 2019-06-06 Anion gap [Moles/Vol] 10 9-18 mmol/L Normal 06-06-19 [facility] ([id number]) Comment: Performed By: #### HBA1C, TS H, LIPB, BMP #### [facility] [address] [place], [place] [address] Calcium [Mass/Vol] 9.6 8.5-10.2 mg/dL Normal 06-06-2019 [facility] ([id number]) Comment: Performed By: #### HBA1C, TS H, LIPB, BMP #### [place] [address] Chloride [Moles/Vol] 105 97-105 mmol/L Normal 0 [facility] (47973) Comment: Performed By: #### HBA1C, TS H, LIPB, BMP #### [facility] [place] [id number] [place] [id number] CO2 [Moles/Vol] 25 22-30 mmol/L Normal 06-06-2019 [facility] ([id number]) Comment: Performed By: #### HBA1C, TS H, LIPB, BMP #### [place] [id number] [place] [id number] Creatinine [Mass/Vol] 0.75 0.58-0.96 mg/dL Normal 06-06-19 [facility] ([id number]) Comment: Performed By: #### HBA1C, TS H, LIPB, BMP #### [place] [id number] [place] [address] eGFR- Amer. >60 Normal 06-06-2019 [facility] ([id number]) Comment: Performed By: #### HBA1C, TS H, LIPB, BMP #### [facility] [address] [place], [place] [id number] GFR/1.73 sq M predicted >60 mL/min/{1.73_m2} Normal 06-06-2019 [facility] among non-blacks MDRD [place] ([id number]) (S/P/Bld) [Vol rate/Area] Comment: Result Comment: eGFR (Estima cara GFR) Units of measure: mL/min/1.73 meters squared eGFR is derived from the ree xpressed MDRD Study equation using the following parameters: serum creatinine, age, gender and race. The creatinine assay has been calibrated to be traceable to IDMS. An eGFR <60 mL/min/1.73m2 fo r >3 months is consistent with chronic kidney disease. Refer to KDOQI guidelines for clinical interpretation. In patients with unstable re nal function, e.g. those with acute kidney injury, the eGFR may not accurately reflect actual GFR. Performed By: #### HBA1C, TS H, LIPB, BMP #### [facility] [address] [place], [place] [id number] Glucose [Mass/Vol] 135 74-99 mg/dL High 06-06-2019 [facility] ([id number]) Comment: Result Comment: The [place] Diabetes [employer] (ADA) provides guidance for cutoff values for fasting glucose and random glucose. The ADA defines fasting as no caloric intake for at least 8 hours. Fas ting plasma glucose results between 100 to 125 mg/dL indicate increased risk for diabetes (prediabetes). Fasting plasma glucose resul ts greater than or equal to 126 mg/dL meet the criteria for diagnosis of diabetes. In the absence of unequivocal hyperglycemia, results should be confirmed by repeat testing. In a patient with classic s ymptoms of hyperglycemia or hyperglycemic crisis, random plasma glucose results greater than or equal to 200 mg/dL meet the criteria for diagnosis of diabetes. Reference: Standards of [facility] Care in Diabetes 2016, [place] [employer] Association. Diabetes Care. 2016.39(Suppl 1). Performed By: #### HBA1C, TS H, LIPB, BMP #### [facility] [address] [place], [place] [address] Potassium [Moles/Vol] 5.5 3.7-5.1 mmol/L High 06-06-19 20 [facility] ([id number]) Comment: Performed By: #### HBA1C, TS H, LIPB, BMP #### [facility] [address] [place], [place] [id number] Sodium [Moles/Vol] 140 136-144 mmol/L Normal 06-06-2019 [facility] ([id number]) Comment: Performed By: #### HBA1C, TS H, LIPB, BMP #### [facility] [address] [place], [place] [address] Urea nitrogen [Mass/Vol] 15 7-21 mg/dL Normal 06-05 [facility] ([id number]) Comment: Performed By: #### HBA1C, TS H, LIPB, BMP #### [facility] [address], [place] [address] albumin/creat ratio on 2019-06-06 Albumin Urine Random <12.0 Normal 0 [facility] ([id number]) Comment: Performed By: #### UACR #### [facility] [place], [place] [phone] Albumin/Creat Ratio Not calculated <30 Normal 06-05 [facility] ([id number]) Comment: Performed By: #### UACR #### [facility] [address] [place], [place] [id number]- [phone] Creatinine,Urine,Ran 90.9 20-300 mg/dL Normal 0 [facility] ([id number]) Comment: Performed By: #### UACR #### [facility] [address] [place], [place] [phone]- [phone] obsolete on 2019-03 OBSOLETE Refill (ENDOSO) Normal 03-05-[address] [facility] Marshall CUTLEROFELIA Moses ([id number]) 1965 [address] [place] Date Time Provider Department ([id number]) 03/05/19 DINORAH ESTEVES During your visit today, we recorded the following informati on about you: Veronika Wen Ma 03/05/2019 12:34 PM Signed 01/29/19 last appt. Allergies As of Date: 03/05/2019 Noted Allergy Reaction SULFA (SULFONAMIDE ANTIBIOTICS) 08/14/2015 14 - Other: See C juliet Comments: Nausea Date Reviewed: 01/29/2019 Reviewed by: Dinorah Esteves - Fully Assessed Reason for Visit: Refill Request [94] Visit Diagnosis:Uncontrolled type 1 diab etes mellitus with hyperglycemia (HCC) [E10.65] Order(s):Lancets lancetsUse as instructed 4x daily E 1 0.65Disp: 400 EachRfl: 5 insulin aspart U-100 (NOVOLOG U-100 INSULIN ASPART) 100 unit /mL solnUp to 50 units daily in insulin pump E10.65. Dispense 90 day supplyDisp: 6 VialRfl: 3 blood sugar diagnostic (CONTOUR TEST STRIPS) test stripCONTO UR NEXT TEST STRIPS Use as instructed 4x daily. On medtronic pump wh ich is compatible with thisDisp: 400 StripRfl: 3 Prescriptions as of 03/05/2019 Sig: LANCETS Use as instructed 4x daily E * INSULIN ASPART U-100 100 UNI* Up to 50 units daily in insul* CONTOUR TEST STRIPS CONTOUR NEXT TEST STRIPS Use * ROSUVASTATIN 10 MG TABLET Take 1 tablet by mouth daily * Patient not taking: Reported on 01/29/2019 LEVOTHYROXINE 50 MCG TABLET Take one tab daily with 2 tab* GLUCAGON (HUMAN RECOMBINANT) * Inject (1)one mg for insulin * ERGOCALCIFEROL (VITAMIN D2) 5* Take by mouth. ASPIRIN 325 MG TABLET Take one (1) tablet daily . Problem List As Of Date 03/05/2019 Noted Resolved Uncontrolled type 1 diabetes mellitus (HCC) [E1* Simple goiter [E04.0] Pure hypercholesterolemia [E78.00] 01/27/2005 06/29/2016 Family history of hypertrophic cardiomyopathy [*01/15/2016 Family history of ischemic heart disease [Z82.4*01/15/2016 Fibroids [D21.9] 06/29/2016 02/02/2017 Prescriptions ordered this encounter Disp Refills Start End LANCETS 400 * 5 03/05/2019 Sig: Use as instructed 4x daily E 10.65 INSULIN ASPART U-100 100 UNIT/ML DURHAM* 6 Vi* 3 03/05/2019 Sig: Up to 50 units daily in insulin pump E10.65. Dispense 9 0day supply CONTOUR TEST STRIPS 400 * 3 03/05/2019 Sig: CONTOUR NEXT TEST STRIPS Use as instructed 4x daily. On medtronic pump which is compatible with this Medications Discontinued During This Encounter Lancets lancets 400 * 5 01/18/2018 03/05/2019 Class: Med Update Sig: Use as instructed 4x daily E 10.65 Disc: Reason for discontinue is not on file. insulin aspart U-100 (NOVOLOG U-100 * 6 Vi* 3 06/26/201803/05 Sig: Up to 50 units daily in insulin pump E10.65. Dispense 9 0day supply Disc: Reason for discontinue is not on file. blood sugar diagnostic (CONTOUR TEST* 400 * 3 01/30/201903/05/2019 Sig: CONTOUR NEXT TEST STRIP S Use as instructed 4x daily. On medtronic pump which is compatible with this Disc: Reason for discontinue is not on file. Encounter Status:Closed by DINORAH ESTEVES MD on progress on 2019-01 PROGRESS HNO ID: [id number] Normal 01-29-2019 [facility] Author: Dinorah Esteves [place] ([id number]) Service: ? Author Type: Physician Type: Progress Notes Filed: 01/29/2019 10:44 AM Note Text: Endocrine Consultation Note CC type 1 diabetes on pump 53 y old woman here for evaluation of uncontrolled type 1 di abetes. Has the 670g and has sensor. Uses auto mode Reports BG running high in am No frequent hypoglycemia Was diagnosed at age 16 Uses novolog in pump bayour contour meter Downloaded pump On 50mcg levothyroxine with 2 tabs on Tuesday for thyroid Not tolerating rosuvastatin 5mg. ROS otherwise negative PAST MEDICAL HISTORY Diagnosis Date - Fibroids 06/29/2016 - Goiter, specified as simple - Hx of lumpectomy 1999 Left Breast - Type I (juvenile type) diabetes mellitus without mention o f complication, uncontrolled (HCC) FAMILY HISTORY Problem Relation Age of Onset - Heart Father - Heart Maternal Grandfather - Breast Cancer Paternal Grandmother - Colon Cancer Sister 45 PAST SURGICAL HISTORY Procedure Laterality Date - LUMPECTOMY/RADIOTHERAPY DIAG MAMM/A10 08/03/99 L breast - benign - PARAG W/WO REMOVAL TUBE OVARY Bilateral 12/23/2016 PARAG, bilateral salpingectomy ALLERGIES Allergen Reactions - Sulfa (Sulfonamide * Other: See Comments Nausea Current Outpatient Medications: blood sugar diagnostic (CONTOUR TEST STRIPS) test strip Use as instructed 4x daily. On medtronic pump which is compatible with this levothyroxine (SYNTHROID) 50 mcg tablet Take one tab daily w ith 2 tabs on sundays insulin aspart U-100 (NOVOLOG U-100 INSULIN ASPART) 100 unit /mL soln Up to 50 units daily in insulin pump E10.65. Dispense supply Lancets lancets Use as instructed 4x daily E 10.65 glucagon (GLUCAGON EMERGENCY KIT, HUMAN,) 1 mg solr Inject ( 1)one mg for insulin shock. ergocalciferol, vitamin D2, (DRISDOL) 50,000 unit capsule Ta ke by mouth. ASPIRIN 325 MG TAB Take one (1) tablet daily . rosuvastatin (CRESTOR) 10 mg tablet Take 1 tablet by mouth d aily at bedtime. (Patient not taking: Reported on 01/29/2019 ) No current facility-administered medications for this visit. REVIEW OF SYSTEMS GENERAL: No weight loss, malaise or fevers., SEE HPI HEENT: Negative for frequent or significant headaches, No ch anges in hearing or vision, no nose bleeds or other nasal problems NECK: Negative for lumps, goiter, pain and significant neck swelling RESPIRATORY: Negative for cough, wheezing or shortness of br eath. CARDIOVASCULAR: Negative for chest pain, leg swelling or pal pitations. GI: Negative for abdominal discomfort, blood in stools or bl ack stools or change in bowel habits MUSCULOSKELETAL: Negative for joint pain or swelling, back p ain or muscle pain. SKIN: Negative for lesions, rash, and itching. : No polyuria or dysuria. HEMATOLOGY/LYMPHOLOGY: Negative for prolonged bleeding, brui sing easily or swollen nodes. ENDOCRINE: Negative for cold or heat intolerance, polyuria, polydipsia and goiter. NEURO: No history of headaches, syncope, paralysis, seizures or tremors All other reviewed and negative other than HPI. BP 100/60 (BP Site: Right Arm, BP Position: Sitting, BP Cuff Size: Large Adult) Pulse 70 Wt 93.4 kg (206 lb) LMP 12/13/2016 (Ex act Date) BMI 32.75 kg/m? Physical Examination General: alert and oriented X 3, well appearing, pleasant an d in no acute distress HEENT: eyes without erythema or icterus, no neck lymphadenop athy or mass. Thyroid exam: No goiter or palpable thyroid nodule LN: No palpable cervical or supraclavicular lymphadenopathy. Skin: no rash, no nail changes Cardiac: RRR, no murmur gallop or rub, no peripheral edema Respiratory: CTA bilaterally, no wheezing or rhonchi Gastrointestinal: soft, NT, no palpable masses Musculoskeletal: no notable extremity weakness Neurological: symmetric reflexes bilateral upper and lower e xtremities. CNII-XII intact Component Latest Ref Rng AND Units 01/18/2018 Protein, Total 6.3 - 8.0 g/dL 7.0 Albumin 3.9 - 4.9 g/dL 4.0 Calcium 8.5 - 10.2 mg/dL 9.5 Bilirubin, Total 0.2 - 1.3 mg/dL 0.3 Alkaline Phosphatase 34 - 123 U/L 63 AST 13 - 35 U/L 12 (L) Glucose 74 - 99 mg/dL 128 (H) BUN 7 - 21 mg/dL 14 Creatinine 0.58 - 0.96 mg/dL 0.68 Sodium 136 - 144 mmol/L 140 Potassium 3.7 - 5.1 mmol/L 4.0 Chloride 97 - 105 mmol/L 103 CO2 22 - 30 mmol/L 25 Anion Gap 9 - 18 mmol/L 12 ALT 7 - 38 U/L 10 eGFR- >60 eGFR-All Other Races . >60 Cholesterol, Total <200 mg/dL 201 (H) Triglyceride <150 mg/dL 45 HDL Cholesterol >39 mg/dL 58 LDL Cholesterol <100 mg/dL 134 (H) Non HDL Cholesterol <130 mg/dL 143 (H) Fasting Time hrs 6 VLDL Cholesterol <30 mg/dL 9 TC:HDL Ratio <5.10 3.47 LDL:HDL Ratio <2.54 2.31 Creatinine, Ur Random (UCRR) 20 - 300 mg/dL 59.5 Albumin, Urine Random 0.0 - 23.0 mg/L <12.0 Albumin/Creat Ratio 0 - 30 mg/g Not calculated Hemoglobin A1C (POCT) 4.2 - 5.6 % 7.8 (A) TSH 0.400 - 5.500 uU/mL 3.590 Free T4 0.9 - 1.7 ng/dL 1.1 -- Uncontrolled type 1 diabetes with hypothyroidism-Ac 7.9% 1) Type 1 diabetes uncontrolled on insulin pump Has kaylin phenomenon. In auto mode less than 60% of the time. Discussed that auto mode will be helpful rodrigo with Kaylin phenomenon. BG running higher later in day seems to be post prandial. Advise changing I:C ratio 1 unit for 4g at 14pm. -changes site every 3 days -fu EYE md -podiatry yearly -bp controlled -hypoglycemia protocol reviewed -Check bg before driving 2) Hyperlipidemia: LDL not at goal. Was not tolerating rosuv astatin 5mg daily. Advise trying to take it at least every other day. Re peat lipids at followup 3) Hypothyrodiism on 50mcg LT4 daily with 2 tabs on tuesday. TSH upper end of normal. Repeat TSH with next set of labs. 4) Thyroid nodule-repeat ultrasound 01/2019. Check neck sono gram. Ordered. Will review images. Patient got flu shot today FU OV 4 months Dinorah Esteves MD ENDOCRINE STAFF physician cnov on 2019-01-29 CNOV Office Visit (ENDOSO) Normal 01-30-20 19 [place] OFELIA Ramírez ([id number]) 1965 [place] Date Time Provider Department ([id number]) 01/29/19 10:00 AM DINORAH ESTEVES During your visit today, we recorded the following informati on about you: Pulse Blood pressure Weight 70/minute 100/60 93.4 kg Dinorah Esteves MD 01/29/2019 10:44 AM Signed Endocrine Consultation Note CC type 1 diabetes on pump 53 y old woman here for evaluation of uncontrolled type 1 di abetes. Has the 670g and has sensor. Uses auto mode Reports BG running high in am No frequent hypoglycemia Was diagnosed at age 16 Uses novolog in pump [facility] contour meter Downloaded pump On 50mcg levothyroxine with 2 tabs on Tuesday for thyroid Not tolerating rosuvastatin 5mg. ROS otherwise negative PAST MEDICAL HISTORY Diagnosis Date - Fibroids 06/29/2016 - Goiter, specified as simple - Hx of lumpectomy 1999 Left Breast - Type I (juvenile type) diabetes mellitus without mention of complication, uncontrolled (HCC) FAMILY HISTORY Problem Relation Age of Onset - Heart Father - Heart Maternal Grandfather - Breast Cancer Paternal Grandmother - Colon Cancer Sister 45 PAST SURGICAL HISTORY Procedure Laterality Date - LUMPECTOMY/RADIOTHERAPY DIAG MAMM/A10 08/03/99 L breast - benign - PARAG W/WO REMOVAL TUBE OVARY Bilateral 12/23/2016 PARAG, bilateral salpingectomy ALLERGIES Allergen Reactions - Sulfa (Sulfonamide * Other: See Comments Nausea Current Outpatient Medications: blood sugar diagnostic (CONTOUR TEST STRIPS) test stri p Use as instructed 4x daily. On medtronic pump which is compatible with this levothyroxine (SYNTHROID) 50 mcg tablet Take one tab daily w ith 2 tabs on sundays insulin aspart U-100 (NOVOLOG U-100 INSULIN ASPA RT) 100 unit/mL soln Up to 50 units daily in insulin pump E10.65. Dispense supply Lancets lancets Use as instructed 4x daily E 10.65 glucagon (GLUCAGON EMERGENCY KIT, HUMAN,) 1 mg solr Inject ( 1)one mg for insulin shock. ergocalciferol, vitamin D2, (DRISDOL) 50,000 unit capsule Ta ke by mouth. ASPIRIN 325 MG TAB Take one (1) tablet daily . rosuvastatin (CRESTOR) 10 mg tablet Take 1 tablet by m outh daily at bedtime. (Patient not taking: Reported on 01/29/2019 ) No current facility-administered medications for this visit. REVIEW OF SYSTEMS GENERAL: No weight loss, malaise or fevers., SEE HPI HEENT: Negative for frequent or significant headaches, No changes in hearing or vision, no nose bleeds or other nasal problems NECK: Negative for lumps, goiter, pain and significant neck swelling RESPIRATORY: Negative for cough, wheezing or shortness of br eath. CARDIOVASCULAR: Negative for chest pain, leg swelling or pal pitations. GI: Negative for abdominal discomfort, blood in stools or bl ack stools or change in bowel habits MUSCULOSKELETAL: Negative fo r joint pain or swelling, back pain or muscle pain. SKIN: Negative for lesions, rash, and itching. : No polyuria or dysuria. HEMATOLOGY/LYMPHOLOGY: Negative for prolonged bleeding, brui sing easily or swollen nodes. ENDOCRINE: Negative for cold or heat intolerance, polyuria, polydipsia and goiter. NEURO: No history of headaches, syncope, paralysis, seizures or tremors All other reviewed and negative other than HPI. BP 100/60 (BP Site: Right Ar m, BP Position: Sitting, BP Cuff Size: Large Adult) Pulse 70 Wt 93.4 kg (206 lb) LMP 12/13/2016 (Exact Zachariah e) BMI 32.75 kg/m? Physical Examination General: alert and oriented X 3, well appearing, pleasant an d in no acute distress HEENT: eyes without erythema or icterus, no neck lymphadenop athy or mass. Thyroid exam: No goiter or palpable thyroid nodule LN: No palpable cervical or supraclavicular lymphadenopathy. Skin: no rash, no nail changes Cardiac: RRR, no murmur gallop or rub, no peripheral edema Respiratory: CTA bilaterally, no wheezing or rhonchi Gastrointestinal: soft, NT, no palpable masses Musculoskeletal: no notable extremity weakness Neurological: symmetric reflexes bilateral upper and lower e xtremities. CNII-XII intact Component Latest Ref Rng AND Units 01/18/2018 Protein, Total 6.3 - 8.0 g/dL 7.0 Albumin 3.9 - 4.9 g/dL 4.0 Calcium 8.5 - 10.2 mg/dL 9.5 Bilirubin, Total 0.2 - 1.3 mg/dL 0.3 Alkaline Phosphatase 34 - 123 U/L 63 AST 13 - 35 U/L 12 (L) Glucose 74 - 99 mg/dL 128 (H) BUN 7 - 21 mg/dL 14 Creatinine 0.58 - 0.96 mg/dL 0.68 Sodium 136 - 144 mmol/L 140 Potassium 3.7 - 5.1 mmol/L 4.0 Chloride 97 - 105 mmol/L 103 CO2 22 - 30 mmol/L 25 Anion Gap 9 - 18 mmol/L 12 ALT 7 - 38 U/L 10 eGFR- >60 eGFR-All Other Races . >60 Cholesterol, Total <200 mg/dL 201 (H) Triglyceride <150 mg/dL 45 HDL Cholesterol >39 mg/dL 58 LDL Cholesterol <100 mg/dL 134 (H) Non HDL Cholesterol <130 mg/dL 143 (H) Fasting Time hrs 6 VLDL Cholesterol <30 mg/dL 9 TC:HDL Ratio <5.10 3.47 LDL:HDL Ratio <2.54 2.31 Creatinine, Ur Random (UCRR) 20 - 300 mg/dL 59.5 Albumin, Urine Random 0.0 - 23.0 mg/L <12.0 Albumin/Creat Ratio 0 - 30 mg/g Not calculated Hemoglobin A1C (POCT) 4.2 - 5.6 % 7.8 (A) TSH 0.400 - 5.500 uU/mL 3.590 Free T4 0.9 - 1.7 ng/dL 1.1 -- Uncontrolled type 1 diabetes with hypothyroidism-Ac 7.9% 1) Type 1 diabetes uncontrolled on insulin pump Has kaylin phenomenon. In auto mode less than 60% of the dorie e. Discussed that auto mode will be helpful rodrigo with Kaylin phenomenon. BG running higher later in day seems to be post prandial. Advise changing I:C ratio 1 unit for 4g at 14pm. -changes site every 3 days -fu EYE md -podiatry yearly -bp controlled -hypoglycemia protocol reviewed -Check bg before driving 2) Hyperlipidemia: LDL not at goal. Was not tolerating rosuvastatin 5mg daily. Advise trying to take it at least every other day. Rep eat lipids at followup 3) Hypothyrodiism on 50mcg LT4 daily with 2 tabs on [place] nday. TSH upper end of normal. Repeat TSH with next set of labs. 4) Thyroid nodule-repeat ult rasound 01/2019. Check neck sonogram. Ordered. Will review images. Patient got flu shot today FU OV 4 months Dinorah Esteves MD ENDOCRINE STAFF physician Dinorah Esteves MD 01/29/2019 10:34 AM Signed Make thyroid ultrasound appointment Take crestor every other day Get labs before next visit Changed Insulin to carb ratio. Let me know if no improvement . Referring Provider: SELF [[id number]] Allergies As of Date: 01/29/2019 Noted Allergy Reaction SULFA (SULFONAMIDE ANTIBIOTICS) 08/14/2015 14 - Other: See C omments Comments: Nausea Date Reviewed: 01/29/2019 Reviewed by: Dinorah Esteves - Fully Assessed Reason for Visit: Diabetes [34] Primary Visit Diagnosis:Uncontrolled type 1 diabetes mellitu s with hyperglycemia (HCC) [E10.65] Other Visit Diagnoses:Hypothyroidism, unspecified type [E03. 9] Insulin pump status [Z96.41] Other hyperlipidemia [E78.49] Nontoxic single thyroid nodule [E04.1] Flu vaccine need [Z23] Insulin pump titration [Z46.81] Order(s):HEMOGLOBIN A1C (POC) [[id number]] Order #: [id number] pec. #:[id number] THYROID/PARATHYROID [[id number]] Order #: [id number] FUTURE LIPID PANEL BASIC [SQLIPB] Order #: [id number] FUTURE BASIC METABOLIC PNL [SQBMP] Order #: [id number] FUTURE HGB A1C [[id number]] Order #: [id number] FUTURE ALBUMIN/CREAT RATIO RND UR [SQUACR] Order #: [id number] FUTU RE TSH BLD [SQTSH] Order #: [id number] FUTURE INFLUENZA VACCINE QUADRIVALENT AGE 3 YRS PLUS + IM [[id number] ] Order #: [id number] FLU IMMUNIZE ORDER/ADMIN [[id number]] Order #: [id number] Prescriptions as of 01/29/2019 Sig: BLOOD SUGAR DIAGNOSTIC STRIPS Use as instructed 4x daily. O* LEVOTHYROXINE 50 MCG TABLET Take one tab daily with 2 tab* INSULIN ASPART U-100 100 UNI* Up to 50 units daily in insul* LANCETS Use as instructed 4x daily E * GLUCAGON (HUMAN RECOMBINANT) * Inject (1)one mg for insulin * ERGOCALCIFEROL (VITAMIN D2) 5* Take by mouth. ASPIRIN 325 MG TABLET Take one (1) tablet daily . ROSUVASTATIN 10 MG TABLET Take 1 tablet by mouth daily * Patient not taking: Reported on 01/29/2019 Problem List As Of Date 01/29/2019 Noted Resolved Uncontrolled type 1 diabetes mellitus (HCC) [E1* Simple goiter [E04.0] Pure hypercholesterolemia [E78.00] INVALID FOR*06/29/2016 Family history of hypertrophic cardiomyopathy [*INVALID FOR* Family history of ischemic heart disease [Z82.4*INVALID FOR* Fibroids [D21.9] INVALID FOR*02/02/2017 Other instructions from your clinician: Make thyroid ultrasound appointment Take crestor every other day Get labs before next visit Changed Insulin to carb ratio. Let me know if no improvement . Disposition: Return in about 4 months (around 06/01/2019). Follow-up and Disposition History Recorded Encounter Status:Closed by DINORAH ESTEVES MD on obsolete on 2019-01 OBSOLETE Refill (ENDOSO) Normal 01-24-[address] [facility] OFELIA CUTLER ([id number]) 1965 [facility] Time Provider Department ([id number]) 01/24/19 DINORAH ESTEVES ENDOSO During your visit today, we recorded the following informati on about you: Allergies As of Date: 01/24/2019 Noted Allergy Reaction SULFA (SULFONAMIDE ANTIBIOTICS) 08/14/2015 14 - Other: See Mundo chung Comments: Nausea Date Reviewed: 10/11/2018 Reviewed by: Dinorah Esteves - Fully Assessed Reason for Visit: Refill Request [94] Visit Diagnosis:Uncontrolled type 1 diab etes mellitus with hyperglycemia (HCC) [E10.65] Order(s):blood sugar diagnostic (CONTOUR TEST STRIPS) test s tripUse as instructed 4x daily. On medtronic pump which is compatible w ith thisDisp: 400 StripRfl: 3 Prescriptions as of 01/24/2019 Sig: BLOOD SUGAR DIAGNOSTIC STRIPS Use as instructed 4x daily. O* ROSUVASTATIN 10 MG TABLET Take 1 tablet by mouth daily * LEVOTHYROXINE 50 MCG TABLET Take one tab daily with 2 tab* INSULIN ASPART U-100 100 UNI* Up to 50 units daily in insul* LANCETS Use as instructed 4x daily E * GLUCAGON (HUMAN RECOMBINANT) * Inject (1)one mg for insulin * ERGOCALCIFEROL (VITAMIN D2) 5* Take by mouth. ASPIRIN 325 MG TABLET Take one (1) tablet daily . Problem List As Of Date 01/24/2019 Noted Resolved Uncontrolled type 1 diabetes mellitus (HCC) [E1* Simple goiter [E04.0] Pure hypercholesterolemia [E78.00] INVALID FOR*06/29/2016 Family history of hypertrophic cardiomyopathy [*INVALID FOR* Family history of ischemic heart disease [Z82.4*INVALID FOR* Fibroids [D21.9] INVALID FOR*02/02/2017 Prescriptions ordered this encounter Disp Refills Start End BLOOD SUGAR DIAGNOSTIC STRIPS 400 * 3 01/24/2019 Class: [employer] Sig: Use as instructed 4x daily. On medtronic pump which i s compatible with this Medications Discontinued During This Encounter blood sugar diagnostic (CONTOUR TEST* 400 * 3 01/25/2018 Sig: Use as instructed 4x da samir. On medtronic pump which is compatible with this Disc: Reason for discontinue is not on file. Encounter Status:Closed by DINORAH ESTEVES MD on No panel information on 1999-06-17 CONVERTED ELECTRONIC YASMIN ORLANDO M.D., PATHOLOGIST 06-17-1999 [facility] SIGNATURE (Electronic signature on file) ([id number]) Final Signed Out: 06/17/1999 13:42 CONVERTED FINAL DIAGNOSIS 06-17-1999 [facility] DIAGNOSIS NON-DIAGNOSTIC SPECIMEN. ROZINA POSE TISSUE. DUCTAL CELLS ARE NOT IDENTIFIED. ([id number]) DEFINITE FEATURES OF FAT NECROSIS ARE NOT APPRECIATED. CONVERTED ORDERING Ordering Provider: YOAN 06-17-1999 [facility] PROVIDER THADDEUS ([id number]) Encounters Date Type Reason Provider Location 12-12-2019 - Orders Only Type 1 diabetes Dinorah Garner Endocrin ology 12-12-2019 mellitus uncontrolled Katherine Comment: Uncontrolled type 1 diabetes mellitus with hyperglycemia (HCC) (Primary Dx); Hypothyroidism, unspecified type 06-12-1999 - Patient [facility] 06-12-1999 encounter Thaddeus procedure 06-12-1999 Results Only Yoan Pham [facility] 01-04-2020 - Telephone Esophageal Dinorah Garner Endocrinolo gy 01-04-2020 encounter disorders Katherine Comment: Forms Procedures Procedure Name Date Provider Location Mammography 09-28-2019 - [facility] 09-28-2019 ([id number]) CONVERTED CYTOLOGY 06-12-[address]an [address] [facility] NON-EARTH SCIENCE LABORATORY TECHNICIAN ([id number]) Plan of Treatment Plan Description Date Location HPV TESTING HPV TESTING 07-27-2021 - [facility] 07-27-2021 ([id number]) PAP TESTING PAP TESTING 07-27-2021 - [facility] 07-27-2021 ([id number]) MAMMOGRAM MAMMOGRAM 09-27-2020 - [facility] 09-27-2020 ([id number]) DIABETIC FOOT EXAM DIABETIC FOOT EXAM 06-05-2020 - [facility] 06-05-2020 ([id number]) URINE ALBUMIN:CREATININE URINE ALBUMIN:CREATININE 06-05-2020 - [facility] RATIO RATIO 06-05-2020 ([id number]) LDL CHOLESTEROL LDL CHOLESTEROL 06-05-2020 - [facility] 06-05-2020 ([id number]) HBA1C HBA1C 06-03-2020 - [facility] 06-03-2020 ([id number]) T4 FREE/FREE THYROX T4 FREE/FREE THYROX Lab 03-12-2020 - [facility] Routine Hypothyroidism, 12-11-2020 ([id number]) unspecified type Expected: 03/12/2020, Expires: 12/11/2020 Comment: Expected: 03/12/2020, s: 12/11/2020 TSH BLD TSH BLD Lab Routine 03-12-2020 - 12-11-2020 [facility] Hypothyroidism, unspecified ([phone]) type Expected: 03/12/2020, Expires: 12/11/2020 Comment: Expected: 03/12/2020, s: 12/11/2020 DILATED RETINAL EXAM DILATED RETINAL EXAM 01-18-2020 - [facility] 01-18-2020 ([id number]) INFLUENZA (#1) INFLUENZA (#1) 2019 - [facility] 12-04-2019 ([id number]) SHINGRIX VACCINE (1 of SHINGRIX VACCINE (1 of 2015 - [facility] 2) 2) 2015 ([id number]) COLORECTAL CANCER COLORECTAL CANCER 2015 - [facility] in SCREENING,SEE MODIFIER SCREENING,SEE MODIFIER 2015 ([id number]) DTAP,TDAP,TD (1 - DTAP,TDAP,TD (1 - 1984 - [facility] in Tdap) Tdap) 1984 ([id number]) ANNUAL PCP TEAM ANNUAL PCP TEAM 1983 - [facility] CHRONIC DISEASE VISIT CHRONIC DISEASE VISIT 1983 ([id number]) HEPATITIS C SCREENING HEPATITIS C SCREENING 1983 - [facility] 1983 ([id number]) HIV SCREENING HIV SCREENING 1983 - [facility] 1983 ([id number]) ONE PNEUMOVAX PRIOR TO ONE PNEUMOVAX PRIOR TO 1981 - [facility] AGE 65 AGE 65 1981 ([id number]) no information [facility] ([id number]) no information [facility] ([id number]) Immunizations Vaccine Notes Status Date Location Influenza Vaccine, influenza virus (completed) 02-20-2007 - [facility] Split-Non Spec vaccine, unspecified 02-20-2007 ([id number]) formulation Influenza Vaccine, influenza virus (completed) 04-06-2006 - [facility] Split-Non Spec vaccine, unspecified 04-06-2006 (4419 5) formulation Influenza Seasonal influenza, injectable, (completed) 01-29-2019 - [facility] Inj Quad Age 6 Mo - quadrivalent, contains 01-29-2019 ([id number]) 64 Yrs preservative Influenza Seasonal influenza, injectable, (completed) 01-18-2018 - [facility] Inj Quad Age 6 Mo - quadrivalent, contains 01-18-2018 ([id number]) 64 Yrs preservative Payers Payer Name Policy Number Location [facility] [id number] [facility] ([id number] 195) [employer] [id number] [facility] ([id number]) The following information is from the original human readable contentNo Payer Records Found Social History Type Social History Date Location Description Tobacco smoking status Never smoker 12-05-2019 - [facility] NHIS 12-05-2019 ([id number]) Tobacco use and Never used 12-05-2019 - [facility] exposure 12-05-2019 ([id number]) Alcohol intake Current non-drinker of 12-05-2019 - [facility] alcohol (finding) 12-05-2019 ([id number]) Sex Assigned At Not on file [facility] ([id number]) Exposure to SARS-CoV-2 Not sure [facility] (event) ([id number]) The following information is from the original human readable contentNo Social History Records Found Medical Equipment Equipment Code (if Equipment Original Equipment Procedure Code ( if Dates provided) Text (if provided) Identifier (if provided) provided) CONTOUR NEXT TEST 09-27-2019 STRIPS Use as instructed 4x daily. On medtronic pump which is compatible with this Use as instructed 03-05-2019 4x daily E 10.65 CONTOUR NEXT TEST 09-27-2019 STRIPS Use as instructed 4x daily. On medtronic pump which is compatible with this Use as instructed 03-05-2019 4x daily E 10.65 History of Past Illness Problem Noted Date Resolved Date Fibroids 06/29/2016 02/02/2017 Pure hypercholesterolemia 01/27/2005 06/29/2016 Problem Noted Date Resolved Date Fibroids 06/29/2016 02/02/2017 Pure hypercholesterolemia 01/27/2005 06/29/2016 Problem Noted Date Resolved Date Fibroids 06/29/2016 02/02/2017 Pure hypercholesterolemia 01/27/2005 06/29/2016 Assessments Diagnosis Uncontrolled type 1 diabetes mellitus wi th hyperglycemia (HCC) - Primary Hypothyroidism, unspecified type Summary Purpose Family History No Family History Records Found Advance Directives No Advanced Directives Records Found Additional Source Comments FOR RECORDS PERTAINING TO PATIENTS WHO ARE OR HAVE BEEN ENROLLED IN A CHEMICAL DEPENDENCY/SUBSTANCE ABUSE PROGRAM, SOME INFORMATION MAY BE OMITTED. This clinical summary was aggregated from multiple sources. Caution should be exercised in using it in the provision of clinical care. This summary normalizes information from multiple sources, and as a consequence, information in this document may materially changethe coding, format and clinical context of patient data. In addition, data may be omittedin some cases. CLINICAL DECISIONS SHOULD BE BASED ON THE PRIMARY CLINICAL RECORDS. [facility] provides no warranty or guarantee of the accuracy or completeness of information in this document. UNRECOGNIZED CONTENT PROVIDED BELOW FOR UNRECOGNIZED SECTION Source Comments In the event this information is protected by the Federal Confidentiality of Alcohol and Drug Abuse Patient Records regulations: The Federal rules restrict any use of the information to criminally investigate or prosecute any alcohol or drug abuse patient.[facility] the event this information is protected by the Federal Confidentiality of Alcohol and Drug Abuse Patient Records regulations: The Federal rules restrict any use of the information to criminally investigate or prosecute any alcohol or drug abuse patient.[facility] the event this information is protected by the Federal Confidentiality of Alcohol and Drug Abuse Patient Records regulations: The Federal rules restrict any use of the information to criminally investigate or prosecute any alcohol or drug abuse patient.[facility] UNRECOGNIZED CONTENT PROVIDED BELOW FOR UNRECOGNIZED SECTION Reason for Visit Reason Onset Date Comments Forms 01/04/2020 UNRECOGNIZED CONTENT PROVIDED BELOW FOR UNRECOGNIZED SECTION Miscellaneous Notes Telephone Encounter - Sha Day)AUDREY - 01/08/2020 2:41 PM EDTFaxed and filed in cabinet. elephone Encounter - Dinorah Esteves - 01/08/2020 8:26 AM EDTI signed the form. Please fax it back with two office notes which is what they would like. Thanks. Dinorah Esteves MD Telephone Encounter - Sha Day (Audrey)AUDREY - 01/04/2020 10:26 AM EDTReceived CMN form. Will be in bin to review. documented in this encounter UNRECOGNIZED CONTENT PROVIDED BELOW FOR UNRECOGNIZED SECTION INFORMATION SOURCE DATE CREATED AUTHOR AUTHOR'S ORGANIZATIO N 01/09/2020 [facility] Praful perez
== END ==
PROVIDERS: PCP Family Medicine; Referring Provider Family Medicine; Visit Provider Family Medicine
DX: R07.89 Other chest pain (principal)
CPT/HCPCS: 71046

== ENCOUNTER 2019-09-18 12:26 | Emergency (ER) | payer BC, SELFPAY ==
[2019-09-18 12:27] VITALS: BP 144/86; PULSE 73; RESP 16; TEMP 36.4; O2SAT 97; BMI 30.8
--- NOTE | 2019-09-18 12:45 | RAD_ITS ---
STUDY: X-RAY - LEFT SHOULDER REASON FOR EXAM: Female, 54 years old. Left shoulder and arm pain -- ran into a pole couple days ago, has a bruise where she ran into the pole, now having pain down entire arm TECHNIQUE: 4 view(s) of the shoulder. COMPARISON: None. FINDINGS: Normal glenohumeral articulation. Normal acromioclavicular joint. Normal acromion. Normal humeral head and visualized proximal humerus. There is periarticular soft tissue calcification consistent with a calcific tendinitis. Normal visualized pulmonary apex. RAD/Shoulder min 2 Views IMPRESSION: Calcific tendinitis. Electronically Signed: Gary Padilla, at 13:15 EDT , Service support ,
--- NOTE | 2019-09-18 12:46 | ED.VISSUMM ---
- ER Visit Summary Date of Service: 09/18/19 Chief Complaint: [Left shoulder injury ] History of Present Illness: The patient is a 54 F [presents to the emergency department with an injury to the left shoulder that occurred 3 days ago. Patient states she bumped into a pole with her left shoulder and initially did not think much of it she continue to work. Later that evening she noted a bruise to the anterior part of the shoulder. She is had progressively increased pain to that area. She complains of a lot of pain when trying to abduct the arm at the shoulder. She was seen by her primary care physician today and sent to the ER for evaluation for concern about possible compartment syndrome because pain was out of proportion to the exam. Patient is on a baby aspirin. No other blood thinners. Patient has history of diabetes and hypothyroidism.] Physical Examination: [HEENT-PERRLA, EOMI. Cranial nerves II through XII grossly intact. TMs clear. Mucous membranes moist. No adenopathy. Cardiovascular-regular rate and rhythm without murmur or ectopy Lungs-clear to auscultation, chest wall stable without crepitus or subcu emphysema Abdomen-normoactive bowel sounds, soft, nontender, no rebound or rigidity, no peritoneal signs. Extremities-intact ?4, normal range of motion, normal pulses. Left shoulder-patient has a small circular area of old ecchymosis to the anterior aspect of the left shoulder that slightly tender to palpation. He has normal flexion extension at the shoulder. She is able to abduct the shoulder but is painful with abduction. She is able to flex and extend at the elbow without difficulty. She has normal pulses. Normal sensation. Normal cap refill. She has no evidence of compartment syndrome. And the compartments in the upper arm are not tight.] Test Results: [X-ray left shoulder obtained showed calcific tendinitis] Emergency Department Course and Treatment: [Patient was given a sling] Treatment Plan: [Patient will be given a sling and a prescription for [place] for severe pain. Patient will be given referral to orthopedics for follow-up if pain does not improve over the next week.] Disposition: [Discharged home in stable condition] Impression: [Contusion left shoulder] This note was generated with popexpertation software. It may contain incorrect words, spelling, and punctuation that were not noted in review of the chart prior to signing ED Disposition - Plan for ED Patient: Referrals: Nallely Hogan MD [Primary Care Provider] -
--- NOTE | 2019-09-18 13:17 | DCINST.ED_ITS ---
ED Disposition - Plan for ED Patient: Instructions: ED EXTREMITY CONTUSION Upper Prescriptions: Hydrocodone Bitart/Apap 5-325 [[place] 5MG-325MG] 1 tablet PO Q4H PRN PRN 2 Days #10 tablet PRN Reason: Pain Transmission Status: Received by [id number] Referrals: Nallely Hogan MD [Primary Care Provider] - Tobias Becerra DO [STAFF PHYSICIAN] - 5-7 Days
--- NOTE | 2019-09-18 13:17 | ED.DEP ---
ED Disposition - Plan for ED Patient: Instructions: ED EXTREMITY CONTUSION Upper Prescriptions: Hydrocodone Bitart/Apap 5-325 [[place] 5MG-325MG] 1 tablet PO Q4H PRN PRN 2 Days #10 tablet PRN Reason: Pain Transmission Status: Received by [id number] Referrals: Nallely Hogan MD [Primary Care Provider] - Tobias Becerra DO [STAFF PHYSICIAN] - 5-7 Days
--- OUTSIDE RECORDS SUMMARY | 2020-01-20 14:18 | XMS RPT_ITS | CCD ---
:1965 External Reference #:[id number] Author Organization [facility] Care Team Providers Name Role Phone Shemar Hooker Primary Care Provider John Pennington Primary Care Provider Allergies Reported Allergen Reaction(s) Severity Date of Onset Location Sulfonamides Other: See Comments 08-14-2015 - Iris weeks [facility] (Antibiotic) (66484) Medications Medication Name Sig Date Prescriber Location Aspirin ASPIRIN 325 MG TAB 01-27-2005 Joshua Harper and [facility] Take one (1) tablet (68483) daily . 0 01/27/2005 Active Comment: Take one (1) tablet daily . Ergocalciferol ergocalciferol, vitamin 12-01-2016 [facility] Provider [facility] D2, (JAMAR) 50,000 unit (6 6782) capsule Take by mouth. 0 12/01/2016 Active Comment: Take by mouth. Glucagon glucagon (GLUCAGON [facility] EMERGENCY KIT, HUMAN,) (4419 5) 1 mg solr Inject (1)one mg for insulin shock. 1 Each 1 01/18/2018 Active Comment: Inject (1)one mg for insulin shock. Insulin, Aspart, insulin aspart 03-05-2019 [facility] Patsy [facility] Human U-100 (NOVOLOG Katherine (74487) U-100 INSULIN ASPART) 100 unit/mL soln Up to 50 units daily in insulin pump E10.65. Dispense 90day supply 6 Vial 3 03/05/2019 Active Comment: Up to 50 units daily in insu skinny pump E10.65. Dispense 90day supply levothyroxine levothy[facility]ine [facility] (SYNTHROID) 75 mcg Kellis (34498) tablet TAKE 1 TABLET DAILY 90 tablet 3 12/12/2019 Active levothyroxine 07-30-2019 - Dinorah Bradleyjuliethandreia [facility] (SYNTHROID) 50 mcg 12-12-2019 Kellis (03812) tablet TAKE 1 TABLET DAILY WITH 2 TABLETS ON SUNDAYS 102 tablet 3 07/30/2019 12/12/2019 Discontinued Comment: TAKE 1 TABLET DAILY TAKE 1 TABLET DAILY WITH 2 T ABLETS ON SUNDAYS Pravastatin pravastatin 12-05-2019 [facility] Mirnazac [facility] linic (PRAVACHOL) 20 mg Kellis (98534) tablet Take 0.5 tablets by mouth daily at bedtime. 30 tablet 3 12/05/2019 Active Comment: Take 0.5 tablets by mouth da samir at bedtime. rosuvastatin rosuvastatin (CRESTOR) 10-24-2018 [facility] Patsy [facility] 10 mg tablet Kellis (45535) Indications: Other hyperlipidemia Take 1 tablet by mouth daily at bedtime. 90 tablet 3 10/24/2018 Active Comment: Take 1 tablet by mouth daily at bedtime. Problems Active Problems Category Problem Name Status Date Location Diabetes mellitus with Type 1 diabetes mellitus Active [facility] complications uncontrolled (95648) Diabetes mellitus without Type 1 diabetes mellitus Active [facility] complication (48328) Thyroid disorders Hypothyroidism Active [facility] (49866) Past or Other Problems Category Problem Name Status Date Location Residual codes; FH: Cardiomyopathy Completed 01-15-2016 - [facility] unclassified (32714) Residual codes; Family history of Completed 01-15-2016 - [facility] unclassified ischemic heart disease (4419 5) Results Result Name Value Range Unit Interpretation Flag Date Location [facility] on 2020-01-04 CNPN Telephone (ENDOSO) Normal 01-04-2020 [facility] OFELIA CUTLER ([id number]) 1965 [place] Date Time Provider Department (35989) 01/04/20 DINORAH ESTEVESO During your visit today, [...] TSH Qn 5.190 0.270-4.200 uU/mL High 12-05-2019 [facility] (15347) Comment: Performed By: #### FT4, TSH ####[facility] [address] [place], [place] [id number]- [phone] progress on 2019-12 PROGRESS HNO ID: [id number] Normal 12-05-2019 [facility] Author: Dinorah Esteves [place] ([id number]) Service: ? Author Type: Physician Type: Progress [...] T4 [Mass/Vol] 1.1 0.9-1.7 ng/dL Normal 12-05-2019 [facility] (20615) Comment: Performed By: #### FT4, TSH ####[facility] [address] [place], [place] [phone]- [phone] cnov on 2019-12-05 CNOV Office Visit (ENDOSO) Normal 12-05-[address] [place] [address] [facility] OFELIA CUTLER ([id number]) 1965 F [place] Date Time Provider Department (72004) 12/05/19 11:00 AM DINORAH ESTEVES During your [...] [Z96.41] Nodular goiter [E04.9] Order(s):HEMOGLOBIN A1C (POC) [8867302] Order #: [id number] HEMOGLOBIN A1C (POC) [3550265] Order #: [id number]. #:[id number] pravastatin (PRAVACHOL) 20 mg tabletTake 0.5 tablets by mout h daily at bedtime.Disp: 30 tabletRfl: 3 TSH BLD [SQTSH] Order #: [id number] FUTURE T4 FREE/FREE THYROX [SQFT4] Order #: [id number] FUTURE LIPID PANEL BASIC [SQLIPB] Order #: [id number] FUTURE ALBUMIN/CREAT RATIO RND UR [SQUACR] Order #: [id number] FUTU RE COMP METABOLIC PANEL [SQCMP] Order #: [id number] FUTURE Prescriptions as of 12/05/2019 Sig: CONTOUR [...] Potassium [Moles/Vol] 4.5 3.7-5.1 mmol/L Normal 12-03-19 [facility] (79031) cnpn on 2019-10-29 CNPN Telephone (ENDOSO) Normal 10-29-2019 [place] OFELIA Ramírez ([id number]) 1965 F [place] Date Time Provider Department (86276) 10/29/19 DINORAH CAIN (HIST)ENDOSChina During your visit today, we recorded the following informati on about you: Veronika Wen Ma 10/29/2019 3:18 PM Signed [facility] [place] approval for Contour Next Test [...] Status:Closed by VERONIKA WEN MA on 10/29/19 [facility] screening on 21-09-25 [facility] SCREENING * * *Final Report* * * Normal [facility] DATE OF EXAM: Sep 28 2019 3:37PM [place] (52330) [facility] 0581 - [facility] SCREENING / PROCEDURE REASON: multiple diagnoses * * * * Physician Interpretation * * * * RESULT: #[id number] - [facility] SCREENING BILATERAL DIGITAL SCREENING MAMMOGRAM WITH CAD: [...] mammogram, 2017 mammogram, and 08/11/2016 mammogram - [facility]. There are scattered fibroglandular elements in both breasts. No significant masses, calcifications, or other findings are seen in either breast. There has been no significant interval change. IMPRESSION: NEGATIVE There is no mammographic evidence of malignancy. A 1 year sc reening mammogram is recommended. Tayolr saldana/teresa:09/28/2019 16:42:49 [employer] Bonder(s): Luisana Mancia RT(R)(M), [facility] letter sent: Normal over 40 Mammogram BI-RADS: [...] Health, Family Medicine, and Medical/Surgical Oncology, the [facility] has carefully reviewed the data and [...] providers when to sto p screening mammograms. Help Desk Representative: Teresa Transcribe Date/Time: Sep 28 2019 3:36P Dictated by: TAYLOR SHELTON MD This examination was interpreted and the report reviewed and electronically signed by: TAYLOR SHELTON MD on Sep 28 2019 4:42PM EST [id number] cnco on 2019-09-28 CNCO HNO ID: [id number] Normal 09-28-2019 [facility] Author: Mammography Coordinator ([id number]) Service: ? Author Type: Physician Type: Letter Filed: 10/01/2019 11:35 PM Note Text: September 28, 2019 PID: [id number] Ofelia Cutler [facility] [place] [address] Dear Ms. Cutler, We are pleased to [...] report will be kept on file at [facility] as part of your permanent medical record and are available f or your continuing care. Thank you for allowing us to help in meeting your health car e needs. Sincerely, Dr. Shelton Interpreting Radiologist [facility] (Normal over 40) obsolete on 2019-08 OBSOLETE Refill (ENDOSO) Normal 08-15-2019 [facility] OFELIA CUTLER ([id number]) 1965 F [facility] Time Provider Department (77483) 08/15/19 DINORAH ESTEVES ENDOSO During your visit [...] on 2019-08-01 NATHALIEN Telephone (ENDOSO) Normal 08-01-2019 [place] OFELIA Ramírez ([id number]) 1965 F [place] Date Time Provider Department (94579) 08/01/19 DINORAH ESTEVES ENDOSO During your visit [...] OBSOLETE Refill (ENDOSO) Normal 07-28-2019 Praful perez [facility] OFELIA CUTLER ([id number]) 1965 F [facility] Time Provider Department (21002) 07/28/19 DINORAH ESTEVES ENDOSO During your visit [...] *Final Report* * * Norm al 06-07-2019 [place] DATE OF EXAM: Jun 07 2019 4:09PM Clinic WRU 1048 - US THYROID/PARATHYROID / [place] PROCEDURE REASON: Nontoxic single thyroid nodule (40940) * * * * Physician Interpretation * [...] thyroid with stab le right thyroid nodule. Help Desk Representative: PSCB Transcribe Date/Time: Jun 07 2019 4:11P Dictated by : HAYDEN LYNNE MD This examination was interpreted and the report reviewed and electronically signed by: HAYDEN LYNNE MD on Jun 07 2019 4:14PM EST [id number] progress on 2019-06 PROGRESS HNO ID: [id number] Normal 06-07-2019 [facility] Author: Nick (Melany) Lavon [place] ([id number]) Service: ? Author Type: Banquet Captain Type: Progress Notes Filed: 06/07/2019 4:10 PM [...] TSH Qn 4.020 0.270-4.200 uU/mL Normal 06-06-2019 [facility] (36775) Comment: Performed By: #### HBA1C, TS H, LIPB, BMP #### [facility] [address] [place] [id number] progress on 2019-06 PROGRESS HNO ID: [id number] Normal 06-06-2019 [facility] Author: Dinorah Esteves [place] ([id number]) Service: ? Author Type: Physician Type: Progress [...] Has kaylin phenomenon. -I advise she call [employer] given issues with sensor calibr ation. She [...] Cholesterol [Mass/Vol] 206 <200 mg/dL High 020 [facility] (21779) Comment: Result Comment: <200 mg/dL, Desirable 200-239 mg/dL, Borderline hi gh >239 mg/dL, High Performed By: #### HBA1C, TS H, LIPB, BMP #### [facility] [address] [place], [place] [address] Cholesterol in HDL 51 >39 mg/dL Normal 06-06-2019 [facility] [Mass/Vol] (88864) Comment: Result Comment: 40-59 mg/dL, Acceptable >59 mg/dL, High: Negative ri sk factor for coronary heart disease <40 mg/dL, Low: Positive ris k factor for coronary heart disease Performed By: #### HBA1C, TS H, LIPB, BMP #### [facility] [address] [place], [place] [address] Cholesterol in LDL 145 <100 mg/dL High 06-06-2019 [facility] [Mass/Vol] (35103) Comment: Result Comment: <100 mg/dL, Optimal 100-129 mg/dL, Near optimal/ above optimal 130-159 mg/dL, Borderline hi gh 160-189 mg/dL, High >189 mg/dL, Very high Secondary prevention optimal LDL Cholesterol levels are recommended to be < 70 mg/dL Performed By: #### HBA1C, TS H, LIPB, BMP #### [facility] [address] [place], [place] [address] Fasting Time 12 hrs Normal 06-06-2019 [facility] (78877) Comment: Performed By: #### HBA1C, TS H, LIPB, BMP #### [facility] [address] [place], [place] [address] LDL:HDL Ratio 2.84 <2.54 High 06-06-2019 [facility] (64928) Comment: Result Comment: Reference: 1. National Cholesterol Educ ation Program ATP III Guideline At-A-Glance Quick Desk Reference: National Heart, Lung, and Blood [place]. National Institutes of Health. 2001: NIH Publication No. 01-3305. 2. An International Atherosc lerosis Society position paper: global recommendations for the management of dyslipidemia: executive summary, Atherosclerosis. 2014: 232(2):410-413. Performed By: #### HBA1C, TS H, LIPB, BMP #### [facility] [address] [place], [place] [address] Non HDL Cholesterol 155 <130 mg/dL High 06-06-2019 [facility] (15806) Comment: Result Comment: <130 mg/dL, Optimal 130-159 mg/dL, Near optimal/ above optimal 160-189 mg/dL, Borderline hi gh 190-219 mg/dL, High >219 mg/dL, Very high Secondary prevention optimal non HDL Cholesterol levels are recommended to be < 100 mg/dL Performed By: #### HBA1C, TS H, LIPB, BMP #### [facility] [address] [place] [address] TC:HDL Ratio 4.04 <5.10 Normal 06-06-2019 [facility] (42177) Comment: Performed By: #### HBA1C, TS H, LIPB, BMP #### [facility] [address] [place] [address] Triglyceride [Mass/Vol] 52 <150 mg/dL Normal 2019 [facility] (99999) Comment: Result Comment: <150 mg/dL, Normal 150-199 mg/dL, Borderline hi gh 200-499 mg/dL, High >499 mg/dL, Very high Performed By: #### HBA1C, TS H, LIPB, BMP #### [facility] [address] [place] [address] VLDL Cholesterol 10 <30 mg/dL Normal 06-06-2019 [facility] (32228) Comment: Performed By: #### HBA1C, TS H, LIPB, BMP #### [facility] [address] [place] [id number] hemoglobin a1c on 2 HbA1c (Bld) [Mass fraction] 194 mg/dL Normal [facility] (75400) Comment: Result Comment: eAG: (Estima cara average glucose) is a calculated value from HgbA1c and is warehouse representative of the average blood glucose level in the last 2-3 month period. Performed By: #### HBA1C, TS H, LIPB, BMP #### [facility] [address] [place], [place] [address] HbA1c (Bld) [Mass fraction] 8.4 4.3-5.6 % High [facility] (24850) Comment: Result Comment: [place] Moon betes Association guidelines indicate that patients with HgbA1c in the range 5.7-6.4% are at increased risk for development of diabetes, and intervention by lifestyle modification may be beneficial. HgbA1c greater o r equal to 6.5% is considered diagnostic of diabetes. Performed By: #### HBA1C, TS H, LIPB, BMP #### [facility] [address] [place], [place] [address] cnov on 2019-06-06 CNOV Office Visit (ENDOSO) Normal 06-06-[address] [place] [address] OFELIA Ramírez ([id number]) 1965 [facility] Date Time Provider Department (36331) 06/06/19 9:40 AM DINORAH ESTEVES ENDOSO During [...] type 1 diabetes mellitus with hypergly cemia ([facility]) (primary encounter diagnosis)(Z96.41) Insulin pump status (E04.1) [...] Has kaylin phenomenon. -I advise she call [employer] given issues with sensor calibr ation. She [...] dose changed (HCC) [Z79.4] Order(s):HB A1C B/O [8064402] Order #: [id number] THYROID/PARATHYROID [7065777] Order #: [id number] FUTURE HEMOGLOBIN A1C (POC) [6020505] Order #: [id number]. #:[id number] Prescriptions as of 06/06/2019 Sig: LANCETS Use [...] gap [Moles/Vol] 10 9-18 mmol/L Normal 06-06-19 [facility] (10400) Comment: Performed By: #### HBA1C, TS H, LIPB, BMP #### [facility] [address] [place], [place] [address] Calcium [Mass/Vol] 9.6 8.5-10.2 mg/dL Normal 06-06-2019 [facility] (10336) Comment: Performed By: #### HBA1C, TS H, LIPB, BMP #### [place] [address] Chloride [Moles/Vol] 105 97-105 mmol/L Normal 0 [facility] (91779) Comment: Performed By: #### HBA1C, TS H, LIPB, BMP #### [place] [address] [place] [id number] CO2 [Moles/Vol] 25 22-30 mmol/L Normal 06-06-2019 [facility] (58312) Comment: Performed By: #### HBA1C, TS H, LIPB, BMP #### [place] [address] [place] [id number] Creatinine [Mass/Vol] 0.75 0.58-0.96 mg/dL Normal 06-06-19 [facility] (10860) Comment: Performed By: #### HBA1C, TS H, LIPB, BMP #### [place] [address] [place] [address] eGFR- Amer. >60 Normal 06-06-2019 [facility] (26301) Comment: Performed By: #### HBA1C, TS H, LIPB, BMP #### [facility] [address] [place], [place] [address] GFR/1.73 sq M predicted >60 mL/min/{1.73_m2} Normal 06-06-2019 [facility] among non-blacks MDRD [place] (01349) (S/P/Bld) [Vol rate/Area] Comment: Result Comment: eGFR [...] #### HBA1C, TS H, LIPB, BMP #### [facility] [address] [place], [place] [id number] Glucose [Mass/Vol] 135 74-99 mg/dL High 06-06-2019 [facility] (62417) Comment: Result Comment: The [place] Diabetes Association (ADA) provides guidance for cutoff [...] for diagnosis of diabetes. Reference: Standards of [place] [facility] Care in Diabetes 2016, [place] Diabetes Association. Diabetes Care. 2016.39(Suppl 1). Performed By: #### HBA1C, TS H, LIPB, BMP #### [facility] [address] [place], [place] [address] Potassium [Moles/Vol] 5.5 3.7-5.1 mmol/L High 06-06-19 20 [facility] (02770) Comment: Performed By: #### HBA1C, TS H, LIPB, BMP #### [facility] [address] [place], [place] 65[address] Sodium [Moles/Vol] 140 136-144 mmol/L Normal 06-06-2019 [facility] (99776) Comment: Performed By: #### HBA1C, TS H, LIPB, BMP #### [facility] [address] [place], [place] [address] Urea nitrogen [Mass/Vol] 15 7-21 mg/dL Normal 06-05 [facility] (51913) Comment: Performed By: #### HBA1C, TS H, LIPB, BMP #### [facility] [address] [place], [place] [address] albumin/creat ratio on 2019-06-06 Albumin Urine Random <12.0 Normal 0 [facility] (62090) Comment: Performed By: #### UACR #### [facility] [place], [place] [phone]- [phone] Albumin/Creat Ratio Not calculated <30 Normal 06-05 [facility] (14662) Comment: Performed By: #### UACR #### [facility] [address] [place], [place] [phone]- [phone] Creatinine,Urine,Ran 90.9 20-300 mg/dL Normal 0 [facility] (51975) Comment: Performed By: #### UACR #### [facility] [address] [place], [place] [phone]- [phone] obsolete on 2019-03 OBSOLETE Refill (ENDOSO) Normal 03-05-2019 [facility] CUTLEROFELIA Moses ([id number]) 1965 [place] Date Time Provider Department (79091) 03/05/19 DINORAH ESTEVES During your visit today, [...] on progress on 2019-01 PROGRESS HNO ID: [id number] Normal 01-29-2019 [facility] Author: Dinorah Esteves [place] (75885) Service: ? Author Type: Physician Type: Progress [...] CNOV Office Visit (ENDOSO) Normal 01-30-20 19 [place] OFELIA Ramírez ([id number]) 1965 [place] Date Time Provider Department (96605) 01/29/19 10:00 AM DINORAH ESTEVES During your [...] at age 16 Uses novolog in pump [facility] contour meter Downloaded pump On 50mcg levothyroxine [...] Insulin pump titration [Z46.81] Order(s):HEMOGLOBIN A1C (POC) [[id number]] Order #: [id number]. #:[id number] THYROID/PARATHYROID [8519832] Order #: [id number] FUTURE LIPID PANEL BASIC [SQLIPB] Order #: [id number] FUTURE BASIC METABOLIC PNL [SQBMP] Order #: [id number] FUTURE HGB A1C [QHMOA9K] Order #: [id number] FUTURE ALBUMIN/CREAT RATIO RND UR [SQUACR] Order #: [id number] FUTU RE TSH BLD [SQTSH] Order #: [id number] FUTURE INFLUENZA VACCINE QUADRIVALENT AGE 3 YRS PLUS + IM [[id number] ] Order #: [id number] FLU IMMUNIZE ORDER/ADMIN [[id number]] Order #: [id number] Prescriptions as of 01/29/2019 Sig: BLOOD SUGAR [...] on 2019-01 OBSOLETE Refill (ENDOSO) Normal 01-24-2019 [facility] OFELIA CUTLER ([id number]) [address] [facility] Time Provider Department (64843) 01/24/19 DINORAH ESTEVES ENDOSO During your visit [...] CONVERTED ELECTRONIC YASMIN ORLANDO M.D., PATHOLOGIST 06-17-1999 [facility] SIGNATURE (Electronic signature on file) (24780) Final Signed Out: 06/17/1999 13:42 CONVERTED FINAL DIAGNOSIS 06-17-[address] [facility] DIAGNOSIS NON-DIAGNOSTIC SPECIMEN. ROZINA POSE TISSUE. DUCTAL CELLS ARE NOT IDENTIFIED. (98483) DEFINITE FEATURES OF FAT NECROSIS ARE NOT APPRECIATED. CONVERTED ORDERING Ordering Provider: YOAN 06-17-1999 [facility] PROVIDER THADDEUS (67973) Encounters Date Type Reason Provider Location 12-12-2019 - Orders Only Type 1 diabetes Dinorah Garner Endocrin ology 12-12-2019 mellitus uncontrolled Katherine Comment: Uncontrolled type 1 diabetes mellitus with hyperglycemia (HCC) (Primary Dx); Hypothyroidism, unspecified type 06-12-1999 - Patient [facility] 06-12-1999 encounter Thaddeus procedure 06-12-1999 Results Only Yoan Pham [facility] 01-04-2020 - Telephone Esophageal Dinorah Garner Endocrinolo gy 01-04-2020 encounter disorders Katherine Comment: Forms Procedures Procedure Name Date Provider Location Mammography 09-28-2019 - [facility] 09-28-2019 (92468) CONVERTED CYTOLOGY 06-12-1999 Yoan Pham [facility] NON-DENTAL ASSISTANT TEACHER (82938) Plan of Treatment Plan Description Date Location HPV TESTING HPV TESTING 07-27-2021 - [facility] 07-27-2021 (49969) PAP TESTING PAP TESTING 07-27-2021 - [facility] 07-27-2021 (85966) MAMMOGRAM MAMMOGRAM 09-27-2020 - [facility] 09-27-2020 (82554) DIABETIC FOOT EXAM DIABETIC FOOT EXAM 06-05-2020 - [facility] 06-05-2020 (63971) URINE ALBUMIN:CREATININE URINE ALBUMIN:CREATININE 06-05-2020 - [facility] RATIO RATIO 06-05-2020 (86523) LDL CHOLESTEROL LDL CHOLESTEROL 06-05-2020 - [facility] 06-05-2020 (34428) HBA1C HBA1C 06-03-2020 - [facility] 06-03-2020 (94323) T4 FREE/FREE THYROX T4 FREE/FREE THYROX Lab 03-12-2020 - [facility] Routine Hypothyroidism, 12-11-2020 (62209) unspecified type Expected: 03/12/2020, Expires: 12/11/2020 Comment: Expected: 03/12/2020, s: 12/11/2020 TSH BLD TSH BLD Lab Routine 03-12-2020 - 12-11-2020 [facility] Hypothyroidism, unspecified (441 95) type Expected: 03/12/2020, Expires: 12/11/2020 Comment: Expected: 03/12/2020, s: 12/11/2020 DILATED RETINAL EXAM DILATED RETINAL EXAM 01-18-2020 - [facility] 01-18-2020 (39128) INFLUENZA (#1) INFLUENZA (#1) 2019 - [facility] 12-04-2019 (12120) SHINGRIX VACCINE (1 of SHINGRIX VACCINE (1 of 2015 - [facility] 2) 2) 2015 (50857) COLORECTAL CANCER COLORECTAL CANCER 2015 - [facility] in SCREENING,SEE MODIFIER SCREENING,SEE MODIFIER 2015 (4 7753) DTAP,TDAP,TD (1 - DTAP,TDAP,TD (1 - 1984 - [facility] in Tdap) Tdap) 1984 (80900) ANNUAL PCP TEAM ANNUAL PCP TEAM 1983 - [facility] CHRONIC DISEASE VISIT CHRONIC DISEASE VISIT 1983 (441 95) HEPATITIS C SCREENING HEPATITIS C SCREENING 1983 - [facility] 1983 (02801) HIV SCREENING HIV SCREENING 1983 - [facility] 1983 (12067) ONE PNEUMOVAX PRIOR TO ONE PNEUMOVAX PRIOR TO 1981 - [facility] AGE 65 AGE 65 1981 (60139) no information [facility] (24842) no information [facility] (72238) Immunizations Vaccine Notes Status Date Location Influenza Vaccine, influenza virus (completed) 02-20-2007 - [facility] Split-Non Spec vaccine, unspecified 02-20-2007 (4419 5) formulation Influenza Vaccine, influenza virus (completed) 04-06-2006 - [facility] Split-Non Spec vaccine, unspecified 04-06-2006 (4419 5) formulation Influenza Seasonal influenza, injectable, (completed) 01-29-2019 - [facility] Inj Quad Age 6 Mo - quadrivalent, contains 01-29-2019 (43436) 64 Yrs preservative Influenza Seasonal influenza, injectable, (completed) 01-18-2018 - [facility] Inj Quad Age 6 Mo - quadrivalent, contains 01-18-2018 (75617) 64 Yrs preservative Payers Payer Name Policy Number Location [facility] [id number] [facility] (44 195) [employer] [id number] [facility] (12933) The following information is from the original human readable contentNo Payer Records Found Social History Type Social History Date Location Description Tobacco smoking status Never smoker 12-05-2019 - [facility] NHIS 12-05-2019 (12983) Tobacco use and Never used 12-05-2019 - [facility] exposure 12-05-2019 (11554) Alcohol intake Current non-drinker of 12-05-2019 - [facility] alcohol (finding) 12-05-2019 (52879) Sex Assigned At Not on file [facility] (39400) Exposure to SARS-CoV-2 Not sure [facility] (event) (07413) The following information is from the original [...] BE BASED ON THE PRIMARY CLINICAL RECORDS. [facility] provides no warranty or guarantee of the accuracy or completeness of information in this document. UNRECOGNIZED CONTENT PROVIDED BELOW FOR UNRECOGNIZED SECTION Source Comments In the event this information is protected by the Federal Confidentiality of Alcohol and Drug Abuse Patient Records regulations: The Federal rules restrict any use of the information to criminally investigate or prosecute any alcohol or drug abuse patient.[facility] the event this information is protected by the Federal Confidentiality of Alcohol and Drug Abuse Patient Records regulations: The Federal rules restrict any use of the information to criminally investigate or prosecute any alcohol or drug abuse patient.[facility] the event this information is protected by the Federal Confidentiality of Alcohol and Drug Abuse Patient Records regulations: The Federal rules restrict any use of the information to criminally investigate or prosecute any alcohol or drug abuse patient.[facility] UNRECOGNIZED CONTENT PROVIDED BELOW FOR UNRECOGNIZED SECTION [...] DATE CREATED AUTHOR AUTHOR'S ORGANIZATIO N 01/09/2020 [facility] Praful perez
--- OUTSIDE RECORDS SUMMARY | 2020-01-20 14:21 | XMS RPT_ITS | CCD ---
:1965 External Reference #:[id number] Author Organization [facility] Care Team Providers Name Role Phone Shemar Hooker Primary Care Provider John Pennington Primary Care Provider Allergies Reported Allergen Reaction(s) Severity Date of Onset Location Sulfonamides Other: See Comments 08-14-2015 - Iris weeks [facility] (Antibiotic) (39648) Medications Medication Name Sig Date Prescriber Location Aspirin ASPIRIN 325 MG TAB 01-27-2005 Joshua Harper and [facility] Take one (1) tablet (54998) daily . 0 01/27/2005 Active Comment: Take one (1) tablet daily . Ergocalciferol ergocalciferol, vitamin 12-01-2016 [facility] Provider [facility] D2, (JAMAR) 50,000 unit (1 5526) capsule Take by mouth. 0 12/01/2016 Active Comment: Take by mouth. Glucagon glucagon (GLUCAGON [facility]2018 [facility] EMERGENCY KIT, HUMAN,) (4419 5) 1 mg solr Inject (1)one mg for insulin shock. 1 Each 1 01/18/2018 Active Comment: Inject (1)one mg for insulin shock. Insulin, Aspart, insulin aspart 03-05-2019 [facility] Patsy [facility] Human U-100 (NOVOLOG Katherine (78045) U-100 INSULIN ASPART) 100 unit/mL soln Up to 50 units daily in insulin pump E10.65. Dispense 90day supply 6 Vial 3 03/05/2019 Active Comment: Up to 50 units daily in insu skinny pump E10.65. Dispense 90day supply levothyroxine levothyroxine 12-12-2019 [facility] (SYNTHROID) 75 mcg Kellis (16811) tablet TAKE 1 TABLET DAILY 90 tablet 3 12/12/2019 Active levothyroxine 07-30-2019 - Dinorah Bradleyjuliethandreia [facility] (SYNTHROID) 50 mcg 12-12-2019 Kellis (47814) tablet TAKE 1 TABLET DAILY WITH 2 TABLETS ON SUNDAYS 102 tablet 3 07/30/2019 12/12/2019 Discontinued Comment: TAKE 1 TABLET DAILY TAKE 1 TABLET DAILY WITH 2 T ABLETS ON SUNDAYS Pravastatin pravastatin 12-05-2019 [facility] Mirnazac [facility]inic (PRAVACHOL) 20 mg Kellis (02108) tablet Take 0.5 tablets by mouth daily at bedtime. 30 tablet 3 12/05/2019 Active Comment: Take 0.5 tablets by mouth da samir at bedtime. rosuvastatin rosuvastatin (CRESTOR) 10-24-2018 [facility] Patsy [facility] 10 mg tablet Kellis (12730) Indications: Other hyperlipidemia Take 1 tablet by mouth daily at bedtime. 90 tablet 3 10/24/2018 Active Comment: Take 1 tablet by mouth daily at bedtime. Problems Active Problems Category Problem Name Status Date Location Diabetes mellitus with Type 1 diabetes mellitus Active [facility] complications uncontrolled (53703) Diabetes mellitus without Type 1 diabetes mellitus Active [facility] complication (95133) Thyroid disorders Hypothyroidism Active [facility] (29282) Past or Other Problems Category Problem Name Status Date Location Residual codes; FH: Cardiomyopathy Completed 01-15-2016 - [facility] unclassified (76717) Residual codes; Family history of Completed 01-15-2016 - [facility] unclassified ischemic heart disease (4419 5) Results Result Name Value Range Unit Interpretation Flag Date Location [facility] on 2020-01-04 CNPN Telephone (ENDOSO) Normal 01-04-2020 [facility] OFELIA CUTLER ([id number]) 1965 F [place] Date Time Provider Department (23691) 01/04/20 DINORAH ESTEVESO During your visit today, [...] TSH Qn 5.190 0.270-4.200 uU/mL High 12-05-2019 [facility] (84659) Comment: Performed By: #### FT4, TSH ####[facility] [address] [place], [place] [phone]- [phone] progress on 2019-12 PROGRESS HNO ID: [id number] Normal 12-05-2019 [facility] Author: Dinorah Esteves [place] (08589) Service: ? Author Type: Physician Type: Progress [...] T4 [Mass/Vol] 1.1 0.9-1.7 ng/dL Normal 12-05-2019 [facility] (05626) Comment: Performed By: #### FT4, TSH ####[facility] [address] [place], [place] [phone] cnov on 2019-12-05 CNOV Office Visit (ENDOSO) Normal 12-05-[address] [place] [address] [facility] OFELIA CUTLER ([id number]) 1965 F [place] Date Time Provider Department (59641) 12/05/19 11:00 AM DINORAH ESTEVES During your [...] [Z96.41] Nodular goiter [E04.9] Order(s):HEMOGLOBIN A1C (POC) [3024480] Order #: [id number] HEMOGLOBIN A1C (POC) [2779442] Order #: [id number]. #:[id number] pravastatin (PRAVACHOL) 20 mg tabletTake 0.5 tablets by mout h daily at bedtime.Disp: 30 tabletRfl: 3 TSH BLD [SQTSH] Order #: [id number] FUTURE T4 FREE/FREE THYROX [SQFT4] Order #: [id number] FUTURE LIPID PANEL BASIC [SQLIPB] Order #: [id number] FUTURE ALBUMIN/CREAT RATIO RND UR [SQUACR] Order #: [id number] FUTU RE COMP METABOLIC PANEL [SQCMP] Order #: [id number] FUTURE Prescriptions as of 12/05/2019 Sig: CONTOUR [...] Potassium [Moles/Vol] 4.5 3.7-5.1 mmol/L Normal 12-03-19 [facility] (80969) cnpn on 2019-10-29 CNPN Telephone (ENDOSO) Normal 10-29-2019 [place] OFELIA Ramírez ([id number]) 1965 F [place] Date Time Provider Department (95764) 10/29/19 DINORAH CAIN (HIST)ENDOSChina During your visit today, we recorded the following informati on about you: Veronika Wen Ma 10/29/2019 3:18 PM Signed [facility] [place] approval for Contour Next Test [...] Status:Closed by VERONIKA WEN MA on 10/29/19 [facility] screening on 21-09-25 [facility] SCREENING * * *Final Report* * * Normal [facility] DATE OF EXAM: Sep 28 2019 3:37PM [place] ([address]) [facility] 0581 - [facility] SCREENING / PROCEDURE REASON: multiple diagnoses * * * * Physician Interpretation * * * * RESULT: #[id number] - [facility] SCREENING BILATERAL DIGITAL SCREENING MAMMOGRAM WITH CAD: [...] mammogram, 2017 mammogram, and 08/11/2016 mammogram - [facility]. There are scattered fibroglandular elements in both breasts. No significant masses, calcifications, or other findings are seen in either breast. There has been no significant interval change. IMPRESSION: NEGATIVE There is no mammographic evidence of malignancy. A 1 year sc reening mammogram is recommended. Taylor saldana/teresa:09/28/2019 16:42:49 Palm Gatherer(s): Luisana Mancia RT(R)(M), [facility] letter sent: Normal over 40 [...] Health, Family Medicine, and Medical/Surgical Oncology, the [facility] has carefully reviewed the data and [...] providers when to sto p screening mammograms. Crane Oiler: Teresa Transcribe Date/Time: Sep 28 2019 3:36P Dictated by: TAYLOR SHELTON MD This examination was interpreted and the report reviewed and electronically signed by: TAYLOR SHELTON MD on Sep 28 2019 4:42PM EST [id number] cnco on 2019-09-28 CNCO HNO ID: [id number] Normal 09-28-2019 [facility] Author: Mammography Coordinator ([id number]) Service: ? Author Type: Physician Type: Letter Filed: 10/01/2019 11:35 PM Note Text: September 28, 2019 PID: [id number] Ofelia Cutler [facility] [place] [address] Dear Ms. Cutler, We are pleased to [...] report will be kept on file at [facility] as part of your permanent medical record and are available f or your continuing care. Thank you for allowing us to help in meeting your health car e needs. Sincerely, Dr. Shelton Interpreting Radiologist [facility] (Normal over 40) obsolete on 2019-08 OBSOLETE Refill (ENDOSO) Normal 08-15-2019 [facility] OFELIA CUTLER ([id number]) 1965 F [facility] Time Provider Department (11455) 08/15/19 DINORAH ESTEVES ENDOSO During your visit [...] on 2019-08-01 NATHALIEN Telephone (ENDOSO) Normal 08-01-2019 [place] OFELIA Ramírez ([id number]) 1965 F [place] Date Time Provider Department (21682) 08/01/19 DINORAH ESTEVES ENDOSO During your visit [...] OBSOLETE Refill (ENDOSO) Normal 07-28-2019 Praful perez [facility] OFELIA CUTLER ([id number]) 1965 F [facility] Time Provider Department (27431) 07/28/19 DINORAH ESTEVES ENDOSO During your visit [...] *Final Report* * * Norm al 06-07-2019 [place] DATE OF EXAM: Jun 07 2019 4:09PM Clinic [facility]U 1048 - US THYROID/PARATHYROID / [place] PROCEDURE REASON: Nontoxic single thyroid nodule (38517) * * * * Physician Interpretation * [...] thyroid with stab le right thyroid nodule. Crane Oiler: PSCB Transcribe Date/Time: Jun 07 2019 4:11P Dictated by : HAYDEN LYNNE MD This examination was interpreted and the report reviewed and electronically signed by: HAYDEN LYNNE MD on Jun 07 2019 4:14PM EST [id number] progress on 2019-06 PROGRESS HNO ID: [id number] Normal 06-07-2019 [facility] Author: Nick (Melany) Lavon [place] (62923) Service: ? Author Type: Dental Professional Type: Progress Notes Filed: 06/07/2019 4:10 PM [...] TSH Qn 4.020 0.270-4.200 uU/mL Normal 06-06-2019 [facility] (67138) Comment: Performed By: #### HBA1C, TS H, LIPB, BMP #### [facility] [address] [address] [place] [id number] progress on 2019-06 PROGRESS HNO ID: [id number] Normal 06-06-2019 [facility] Author: Dinorah Esteves [place] (95724) Service: ? Author Type: Physician Type: Progress [...] Has kaylin phenomenon. -I advise she call [employer] given issues with sensor calibr ation. She [...] Cholesterol [Mass/Vol] 206 <200 mg/dL High 020 [facility] (59132) Comment: Result Comment: <200 mg/dL, Desirable 200-239 mg/dL, Borderline hi gh >239 mg/dL, High Performed By: #### HBA1C, TS H, LIPB, BMP #### [facility] [address] [place], [place] [address] Cholesterol in HDL 51 >39 mg/dL Normal 06-06-2019 [facility] [Mass/Vol] (26996) Comment: Result Comment: 40-59 mg/dL, Acceptable >59 mg/dL, High: Negative ri sk factor for coronary heart disease <40 mg/dL, Low: Positive ris k factor for coronary heart disease Performed By: #### HBA1C, TS H, LIPB, BMP #### [facility] [address] [place], [place] [address] Cholesterol in LDL 145 <100 mg/dL High 06-06-2019 [facility] [Mass/Vol] (76710) Comment: Result Comment: <100 mg/dL, Optimal 100-129 mg/dL, Near optimal/ above optimal 130-159 mg/dL, Borderline hi gh 160-189 mg/dL, High >189 mg/dL, Very high Secondary prevention optimal LDL Cholesterol levels are recommended to be < 70 mg/dL Performed By: #### HBA1C, TS H, LIPB, BMP #### [facility] [address] [place], [place] [address] Fasting Time 12 hrs Normal 06-06-2019 [facility] (54898) Comment: Performed By: #### HBA1C, TS H, LIPB, BMP #### [facility] [address] [place], [place] [address] LDL:HDL Ratio 2.84 <2.54 High 06-06-2019 [facility] (03639) Comment: Result Comment: Reference: 1. National Cholesterol Educ ation Program ATP III Guideline At-A-Glance Quick Desk Reference: National Heart, Lung, and Blood [place]. National Institutes of Health. 2001: NIH Publication No. 01-3305. 2. An International Atherosc lerosis Society position paper: global recommendations for the management of dyslipidemia: executive summary, Atherosclerosis. 2014: 232(2):410-413. Performed By: #### HBA1C, TS H, LIPB, BMP #### [facility] [address] [place], [place] [address] Non HDL Cholesterol 155 <130 mg/dL High 06-06-2019 [facility] (12421) Comment: Result Comment: <130 mg/dL, Optimal 130-159 mg/dL, Near optimal/ above optimal 160-189 mg/dL, Borderline hi gh 190-219 mg/dL, High >219 mg/dL, Very high Secondary prevention optimal non HDL Cholesterol levels are recommended to be < 100 mg/dL Performed By: #### HBA1C, TS H, LIPB, BMP #### [facility] [address] [place] [address] TC:HDL Ratio 4.04 <5.10 Normal 06-06-2019 [facility] (57995) Comment: Performed By: #### HBA1C, TS H, LIPB, BMP #### [facility] [address] [place] [address] Triglyceride [Mass/Vol] 52 <150 mg/dL Normal 2019 [facility] (96212) Comment: Result Comment: <150 mg/dL, Normal 150-199 mg/dL, Borderline hi gh 200-499 mg/dL, High >499 mg/dL, Very high Performed By: #### HBA1C, TS H, LIPB, BMP #### [facility] [address] [place] [address] VLDL Cholesterol 10 <30 mg/dL Normal 06-06-2019 [facility] (90841) Comment: Performed By: #### HBA1C, TS H, LIPB, BMP #### [facility] [address] [place] [id number] hemoglobin a1c on 2 HbA1c (Bld) [Mass fraction] 194 mg/dL Normal [facility] (73229) Comment: Result Comment: eAG: (Estima cara average glucose) is a calculated value from HgbA1c and is manufacturers representative of the average blood glucose level in the last 2-3 month period. Performed By: #### HBA1C, TS H, LIPB, BMP #### [facility] [address] [place], [place] [address] HbA1c (Bld) [Mass fraction] 8.4 4.3-5.6 % High [facility] (00661) Comment: Result Comment: [place] Moon betes Association guidelines indicate that patients with HgbA1c in the range 5.7-6.4% are at increased risk for development of diabetes, and intervention by lifestyle modification may be beneficial. HgbA1c greater o r equal to 6.5% is considered diagnostic of diabetes. Performed By: #### HBA1C, TS H, LIPB, BMP #### [facility] [address] [place], [place] [address] cnov on 2019-06-06 CNOV Office Visit (ENDOSO) Normal 06-06-[address] [place] [address] OFELIA Ramírez ([id number]) 1965 [facility] Date Time Provider Department (18404) 06/06/19 9:40 AM DINORAH ESTEVES ENDOSO During [...] type 1 diabetes mellitus with hypergly cemia ([facility]) (primary encounter diagnosis)(Z96.41) Insulin pump status (E04.1) [...] Has kaylin phenomenon. -I advise she call [employer] given issues with sensor calibr ation. She [...] dose changed (HCC) [Z79.4] Order(s):HB A1C B/O [7767700] Order #: [id number] THYROID/PARATHYROID [3009006] Order #: [id number] FUTURE HEMOGLOBIN A1C (POC) [3240230] Order #: [id number]. #:[id number] Prescriptions as of 06/06/2019 Sig: LANCETS Use [...] gap [Moles/Vol] 10 9-18 mmol/L Normal 06-06-19 [facility] (64611) Comment: Performed By: #### HBA1C, TS H, LIPB, BMP #### [facility] [address] [place], [place] [address] Calcium [Mass/Vol] 9.6 8.5-10.2 mg/dL Normal 06-06-2019 [facility] (57272) Comment: Performed By: #### HBA1C, TS H, LIPB, BMP #### [place] [address] Chloride [Moles/Vol] 105 97-105 mmol/L Normal 0 [facility] (57842) Comment: Performed By: #### HBA1C, TS H, LIPB, BMP #### [place] [address] [place] [address] CO2 [Moles/Vol] 25 22-30 mmol/L Normal 06-06-2019 [facility] (83132) Comment: Performed By: #### HBA1C, TS H, LIPB, BMP #### [place] [address] [place] [id number] Creatinine [Mass/Vol] 0.75 0.58-0.96 mg/dL Normal 06-06-19 [facility] (92419) Comment: Performed By: #### HBA1C, TS H, LIPB, BMP #### [place] [address] [place] [address] eGFR- Amer. >60 Normal 06-06-2019 [facility] (16581) Comment: Performed By: #### HBA1C, TS H, LIPB, BMP #### [facility] [address] [place], [place] [id number] GFR/1.73 sq M predicted >60 mL/min/{1.73_m2} Normal 06-06-2019 [facility] among non-blacks MDRD [place] (96924) (S/P/Bld) [Vol rate/Area] Comment: Result Comment: eGFR [...] #### HBA1C, TS H, LIPB, BMP #### [facility] [address] [place], [place] [id number] Glucose [Mass/Vol] 135 74-99 mg/dL High 06-06-2019 [facility] (46228) Comment: Result Comment: The [place] Diabetes Association (ADA) provides guidance for cutoff [...] for diagnosis of diabetes. Reference: Standards of [facility] Care in Diabetes 2016, [place] Diabetes Association. Diabetes Care. 2016.39(Suppl 1). Performed By: #### HBA1C, TS H, LIPB, BMP #### [facility] [address] [place], [place] [address] Potassium [Moles/Vol] 5.5 3.7-5.1 mmol/L High 06-06-19 20 [facility] (82185) Comment: Performed By: #### HBA1C, TS H, LIPB, BMP #### [facility] [address] [place], [place] [phone] Sodium [Moles/Vol] 140 136-144 mmol/L Normal 06-06-2019 [facility] (86579) Comment: Performed By: #### HBA1C, TS H, LIPB, BMP #### [facility] [address] [place], [place] [address] Urea nitrogen [Mass/Vol] 15 7-21 mg/dL Normal 06-05 [facility] (99997) Comment: Performed By: #### HBA1C, TS H, LIPB, BMP #### [facility] [address] [place], [place] [address] albumin/creat ratio on 2019-06-06 Albumin Urine Random <12.0 Normal 0 [facility] (65671) Comment: Performed By: #### UACR #### [facility] [place], [place] [phone]- [phone] Albumin/Creat Ratio Not calculated <30 Normal 06-05 [facility] (57836) Comment: Performed By: #### UACR #### [facility] [address] [place], [place] [phone]- [phone] Creatinine,Urine,Ran 90.9 20-300 mg/dL Normal 0 [facility] (21500) Comment: Performed By: #### UACR #### [facility] [address] [place], [place] [phone]- [phone] obsolete on 2019-03 OBSOLETE Refill (ENDOSO) Normal 03-05-2019 [facility] CUTLEROFELIA Moses ([id number]) 1965 F [place] Date Time Provider Department (97459) 03/05/19 DINORAH ESTEVES During your visit today, [...] on progress on 2019-01 PROGRESS HNO ID: [id number] Normal 01-29-2019 [facility] Author: Dinorah Esteves [place] ([address]700) Service: ? Author Type: Physician Type: Progress [...] CNOV Office Visit (ENDOSO) Normal 01-30-20 19 [place] OFELIA Ramírez ([id number]) 1965 F [place] Date Time Provider Department (03021) 01/29/19 10:00 AM DINORAH ESTEVES During your [...] at age 16 Uses novolog in pump [facility] contour meter Downloaded pump On 50mcg levothyroxine [...] Insulin pump titration [Z46.81] Order(s):HEMOGLOBIN A1C (POC) [1594174] Order #: [id number]. #:[id number] THYROID/PARATHYROID [9855174] Order #: [id number] FUTURE LIPID PANEL BASIC [SQLIPB] Order #: [id number] FUTURE BASIC METABOLIC PNL [SQBMP] Order #: [id number] FUTURE HGB A1C [RGSUE8O] Order #: [id number] FUTURE ALBUMIN/CREAT RATIO RND UR [SQUACR] Order #: [id number] FUTU RE TSH BLD [SQTSH] Order #: [id number] FUTURE INFLUENZA VACCINE QUADRIVALENT AGE 3 YRS PLUS + IM [[id number] ] Order #: [id number] FLU IMMUNIZE ORDER/ADMIN [[id number]] Order #: [id number] Prescriptions as of 01/29/2019 Sig: BLOOD SUGAR [...] on 2019-01 OBSOLETE Refill (ENDOSO) Normal 01-24-2019 [facility] OFELIA CUTLER ([id number]) 1965 [facility] Time Provider Department (34946) 01/24/19 DINORAH ESTEVES ENDOSO During your visit [...] CONVERTED ELECTRONIC YASMIN ORLANDO M.D., PATHOLOGIST 06-17-1999 [facility] SIGNATURE (Electronic signature on file) ([id number]) Final Signed Out: 06/17/1999 13:42 CONVERTED FINAL DIAGNOSIS 06-17-1999 [facility] DIAGNOSIS NON-DIAGNOSTIC SPECIMEN. ROZINA POSE TISSUE. DUCTAL CELLS ARE NOT IDENTIFIED. (31268) DEFINITE FEATURES OF FAT NECROSIS ARE NOT APPRECIATED. CONVERTED ORDERING Ordering Provider: YOAN 06-17-1999 [facility] PROVIDER THADDEUS (46404) Encounters Date Type Reason Provider Location 12-12-2019 - Orders Only Type 1 diabetes Dinorah Garner Endocrin ology 12-12-2019 mellitus uncontrolled Katherine Comment: Uncontrolled type 1 diabetes mellitus with hyperglycemia (HCC) (Primary Dx); Hypothyroidism, unspecified type 06-12-1999 - Patient [facility] 06-12-1999 encounter Thaddeus procedure 06-12-1999 Results Only Yoan Pham [facility] 01-04-2020 - Telephone Esophageal Dinorah Garner Endocrinolo gy 01-04-2020 encounter disorders Katherine Comment: Forms Procedures Procedure Name Date Provider Location Mammography 09-28-2019 - [facility] 09-28-2019 (64942) CONVERTED CYTOLOGY 06-12-1999 Yoan Pham [facility] NON-HOSE SUSPENDER CUTTER (16092) Plan of Treatment Plan Description Date Location HPV TESTING HPV TESTING 07-27-2021 - [facility] 07-27-2021 (91279) PAP TESTING PAP TESTING 07-27-2021 - [facility] 07-27-2021 (04118) MAMMOGRAM MAMMOGRAM 09-27-2020 - [facility] 09-27-2020 (40102) DIABETIC FOOT EXAM DIABETIC FOOT EXAM 06-05-2020 - [facility] 06-05-2020 (70932) URINE ALBUMIN:CREATININE URINE ALBUMIN:CREATININE 06-05-2020 - [facility] RATIO RATIO 06-05-2020 (28728) LDL CHOLESTEROL LDL CHOLESTEROL 06-05-2020 - [facility] 06-05-2020 (34123) HBA1C HBA1C 06-03-2020 - [facility] 06-03-2020 (36716) T4 FREE/FREE THYROX T4 FREE/FREE THYROX Lab 03-12-2020 - [facility] Routine Hypothyroidism, 12-11-2020 (01656) unspecified type Expected: 03/12/2020, Expires: 12/11/2020 Comment: Expected: 03/12/2020, s: 12/11/2020 TSH BLD TSH BLD Lab Routine 03-12-2020 - 12-11-2020 [facility] Hypothyroidism, unspecified (441 95) type Expected: 03/12/2020, Expires: 12/11/2020 Comment: Expected: 03/12/2020, s: 12/11/2020 DILATED RETINAL EXAM DILATED RETINAL EXAM 01-18-2020 - [facility] 01-18-2020 (34012) INFLUENZA (#1) INFLUENZA (#1) 2019 - [facility] 12-04-2019 (95584) SHINGRIX VACCINE (1 of SHINGRIX VACCINE (1 of 2015 - [facility] 2) 2) 2015 (41911) COLORECTAL CANCER COLORECTAL CANCER 2015 - [facility] in SCREENING,SEE MODIFIER SCREENING,SEE MODIFIER 2015 (4 8065) DTAP,TDAP,TD (1 - DTAP,TDAP,TD (1 - 1984 - [facility] in Tdap) Tdap) 1984 (86206) ANNUAL PCP TEAM ANNUAL PCP TEAM 1983 - [facility] CHRONIC DISEASE VISIT CHRONIC DISEASE VISIT 1983 (441 95) HEPATITIS C SCREENING HEPATITIS C SCREENING 1983 - [facility] 1983 (68779) HIV SCREENING HIV SCREENING 1983 - [facility] 1983 (21929) ONE PNEUMOVAX PRIOR TO ONE PNEUMOVAX PRIOR TO 1981 - [facility] AGE 65 AGE 65 1981 (48358) no information [facility] (87454) no information [facility] (61788) Immunizations Vaccine Notes Status Date Location Influenza Vaccine, influenza virus (completed) 02-20-2007 - [facility] Split-Non Spec vaccine, unspecified 02-20-2007 (4419 5) formulation Influenza Vaccine, influenza virus (completed) 04-06-2006 - [facility] Split-Non Spec vaccine, unspecified 04-06-2006 (4419 5) formulation Influenza Seasonal influenza, injectable, (completed) 01-29-2019 - [facility] Inj Quad Age 6 Mo - quadrivalent, contains 01-29-2019 (20048) 64 Yrs preservative Influenza Seasonal influenza, injectable, (completed) 01-18-2018 - [facility] Inj Quad Age 6 Mo - quadrivalent, contains 01-18-2018 (95751) 64 Yrs preservative Payers Payer Name Policy Number Location [facility] [id number] [facility] (44 195) Renthackr [id number] [facility] (57127) The following information is from the original human readable contentNo Payer Records Found Social History Type Social History Date Location Description Tobacco smoking status Never smoker 12-05-2019 - [facility] NHIS 12-05-2019 (61451) Tobacco use and Never used 12-05-2019 - [facility] exposure 12-05-2019 (05103) Alcohol intake Current non-drinker of 12-05-2019 - [facility] alcohol (finding) 12-05-2019 ([id number]) Sex Assigned At Not on file [facility] ([id number]) Exposure to SARS-CoV-2 Not sure [facility] (event) ([id number]) The following information is from the original [...] BE BASED ON THE PRIMARY CLINICAL RECORDS. [facility] provides no warranty or guarantee of the accuracy or completeness of information in this document. UNRECOGNIZED CONTENT PROVIDED BELOW FOR UNRECOGNIZED SECTION Source Comments In the event this information is protected by the Federal Confidentiality of Alcohol and Drug Abuse Patient Records regulations: The Federal rules restrict any use of the information to criminally investigate or prosecute any alcohol or drug abuse patient.[facility] the event this information is protected by the Federal Confidentiality of Alcohol and Drug Abuse Patient Records regulations: The Federal rules restrict any use of the information to criminally investigate or prosecute any alcohol or drug abuse patient.[facility] the event this information is protected by the Federal Confidentiality of Alcohol and Drug Abuse Patient Records regulations: The Federal rules restrict any use of the information to criminally investigate or prosecute any alcohol or drug abuse patient.[facility] UNRECOGNIZED CONTENT PROVIDED BELOW FOR [...] DATE CREATED AUTHOR AUTHOR'S ORGANIZATIO N 01/09/2020 [facility] Praful perez
== END 2019-09-18 13:25 | disposition home or self-care (01) ==
LOC: ED 13:14
PROVIDERS: Emergency Provider Emergency Medicine; PCP Family Medicine
DX: S40.012A Contusion of left shoulder, initial encounter (principal); W22.09XA Striking against other stationary object, initial encounter; Y93.9 Activity, unspecified; Y92.9 Unspecified place or not applicable; E03.9 Hypothyroidism, unspecified; E11.9 Type 2 diabetes mellitus without complications; Z79.4 Long term (current) use of insulin; Z79.899 Other long term (current) drug therapy
CPT/HCPCS: 73030; 99283

== ENCOUNTER 2021-04-16 12:26 | Outpatient (CLI) | payer BC, SELFPAY ==
--- NOTE | 2021-04-16 12:33 | BD_ITS ---
STUDY: DUAL ENERGY X-RAY ABSORPTIOMETRY / DXA REASON FOR EXAM: Female, 56 years old. [id number]. Patient is postmenopausal. TECHNIQUE: Bone Mineral Density (BMD) measurements of lumbar spine and bilateral hips were obtained. COMPARISON: None. FINDINGS: Lumbar Spine (L1-L4): g/cm2 (1.066) / T-score (0.2) / Z-score (1.3) Findings are suggestive of normal bone density with a low fracture risk. Left Femur Total: g/cm2 (0.955) / T-score (0.1) / Z-score (0.8) Left Femoral Neck: g/cm2 (0.799) / T-score (-0.5) / Z-score (0.7) Right Femur Total: g/cm2 (0.982) / T-score (0.3) / Z-score (1.1) Right Femoral Neck: g/cm2 (0.804) / T-score (-0.4) / Z-score (0.7) BD/Dexa Bone Density Study IMPRESSION: The patient is considered normal as outlined below according to World [employer] Organization (WHO) criteria with a low fracture risk. Reference Information: The T-score is the number of standard deviations above or below the standard which is normal for young adults at their peak bone mineral density. The World Health Organization (WHO) interprets the T-scores as follows: Above -1 Normal bone density Between -1 and -2.5 Osteopenia Equal to / or below -2.5 Osteoporosis As a practical clinical guideline, osteopenia may be graded as follows: Mild -1 through -1.5 Moderate -1.6 through -2.0 Severe -2.1 through -2.4 The Z-score is the number of standard deviations above or below age-matched controls. A Z-score of less than -1.5 would be considered abnormal. References: 1. NIH Osteoporosis and Related Bone Diseases www osteo.org 2. International Society for Clinical Densitometry www iscd.org 3. National Osteoporosis Foundation www nof.org Electronically Signed: Gary Padilla MD at 14:24 EST , Service support ,
== END 2021-04-16 23:59 | disposition short-term general hospital (02) ==
LOC: OPBD 12:27
PROVIDERS: PCP Family Medicine; Referring Provider Family Medicine; Visit Provider Family Medicine
DX: Z78.0 Asymptomatic menopausal state (principal)
CPT/HCPCS: 77080

== ENCOUNTER 2022-05-31 05:48 | Day surgery (SDC) | payer BC, SELFPAY ==
[2022-05-31] VITALS (7 sets, daily range): BP systolic 84–108; BP diastolic 47–61; PULSE 59–78; RESP 16–18; TEMP 36.1–36.6; O2SAT 96–100; BMI 31.1
[2022-05-31] MEDS: Lactated Ringers 1,000 ML 15 ML IV (06:18)
--- NOTE | 2022-05-31 06:59 | PCM.HP.STD ---
[facility] - General General Date of Admission: 05/31/22 Date of Service: 05/31/22 Chief Complaint: Screening colonoscopy HPI Rosalinda CUTLER, is a 57 F who presents today for screening colonoscopy. Her sister has a history of colon cancer. She has a personal history of adenomatous polyps. She is not having any chest pain or shortness of breath. Her past medical history is positive for hypothyroidism and diabetes. She is not having any abdominal pain, cramping, constipation, diarrhea or lower GI bleeding. Overall she is in very good health. COUNTS INCLUDE 234 BEDS AT THE [facility] Medical History (Updated 05/27/22 @ 08:31 by Franny Méndez) History of echocardiogram Hypothyroid Insulin dependent diabetes mellitus Non-smoker Post-menopausal Thyroid disease Type I diabetes mellitus Wears glasses Home Medications Insulin Basal Pump (Pt's Own) [Pump, Basal] 0 unit subcut UD 12/17/16 [History Last Taken Unknown] levothyroxine 25 mcg tablet 50 mcg PO DAILY 12/17/16 [History Last Taken 12/23/16 05:00] cholecalciferol (vitamin D3) 25 mcg (1,000 unit) capsule (Vitamin D3) 25 mcg PO DAILY 05/27/22 [History Last Taken Unknown] Allergy/AdvReac Type Severity Reaction Status Date / Time Sulfa (Sulfonamide AdvReac Nausea Verified 05/31/22 06:12 Antibiotics) Family History (Updated 03/02/22 @ 15:23 by Mervat Pappas) Sister Colon cancer Surgical History (Updated 05/27/22 @ 08:31 by Franny Méndez) History of colonoscopy Hx of breast lump removal Hx of hysterectomy Hx of wisdom tooth extraction Social History Smoking Status: Never smoker ROS Review of Systems ROS Unobtainable: other Constitutional Constitutional: Denies fatigue, fever(s), poor appetite, weight gain or weight loss ENT HEENT: Denies mouth lesions Cardiovascular Cardiovascular: Denies abdominal bloating, abdominal edema or abdominal pain Respiratory/Chest Respiratory/Chest: Denies change in mental status, change in phlegm color, chest congestion or chest tightness Gastrointestinal Gastrointestinal: Denies belching, bloating, change in bowel habits, change in stool character, chewing difficulty, coffee ground emesis, constipation, cramping, diarrhea, dyspepsia, dysphagia, early satiety, excessive flatus, fecal incontinence, heartburn, hematemesis, hematochezia, hemorrhoids, loose stools, melena, nausea, odynophagia, rectal bleeding, tenesmus, vomiting or weight changes Genitourinary Genitourinary: Denies abdominal discomfort, burning urination or itching Musculoskeletal Musculoskeletal: Reports as per HPI; Denies muscle weakness or myalgias Integumentary Integumentary: Denies jaundice Neurologic Neurologic: Denies lack of coordination or weakness Psychiatric Psychiatric: Denies confusion, depression, memory loss, mood swings, paranoia or suicidal ideation Endocrine Endocrinology: Denies systems reviewed and no addt'l complaints, except as documented Hematologic/Lymphatic Hematologic/Lymphatic: Denies anemia, easy bleeding, easy bruising or lymphadenopathy Allergic/Immunologic Allergic/Immunologic: Denies systems reviewed and no addt'l complaints, except as documented Vital Signs Vital Signs Vital Signs: 05/31/22 06:16 05/31/22 06:16 Temperature 97 F L Temperature Source Temporal Pulse Rate 78 Respiratory Rate 16 Respiratory Pattern Normal Blood Pressure 101/54 L Blood Pressure Mean 69 Blood Pressure Source Monitor Blood Pressure Position Semi-Fowlers Blood Pressure Location Left Arm Pulse Ox 100 Oxygen Delivery Method Room Air Weight Weight: 198 lb 6.656 oz Body Mass Index (BMI) 31.1 Physical Exam Const alert General Appearance: cooperative Orientation / Consciousness: oriented to person HEENT hearing grossly normal bilaterally Head and Scalp: normal to inspection Face and Sinus: face symmetric Nose: external nose normal Mouth: oral and palatal mucosa normal Eyes conjunctivae normal General Eye: normal appearance of both eyes Neck full ROM General: normal visual inspection Lymph Lymphatic: no lymphadenopathy noted Chest inspection of chest normal and palpation of chest normal Chest: symmetrical chest wall rise Resp normal respiratory effort Effort and Inspection: able to speak in complete sentences Cardio regular rate GI non-distended Percussion: normal to percussion Rectal Exam: deferred Neuro Speech: speech normal Gait (Neuro): normal gait Assessment & Plan Assessment/Plan (1) Encounter for screening for malignant neoplasm of colon: PLAN: She was explained alternatives, risk, benefits including not withstanding bleeding, infection, sepsis, perforation, need for emergent surgery . She have an ASA of 1.
--- NOTE | 2022-05-31 07:36 | OP.COLON_ITS ---
Patient Name: Mendy Betts Procedure Date: 05/31/2022 7:04 AM Date of : 1965 Age: 57 Procedure: Colonoscopy Indications: Screening for colorectal malignant neoplasm Providers: Tirso Sanders DO Medicines: Monitored Anesthesia Care Patient Profile: This is a 57 year old female. Refer to note in patient chart for documentation of history and physical. Last Colonoscopy: 10 years ago. Complications: No immediate complications. Procedure: Pre-Anesthesia Assessment: - Prior to the procedure, a History and Physical was performed, and patient medications and allergies were reviewed. The risks and benefits of the procedure and the sedation options and risks were discussed with the patient. All questions were answered and informed consent was obtained. Patient identification and proposed procedure were verified by the physician in the pre-procedure area. Mental Status Examination: alert and oriented. Airway Examination: normal oropharyngeal airway and neck mobility. Respiratory Examination: clear to auscultation. CV Examination: normal. Prophylactic Antibiotics: The patient does not require prophylactic antibiotics. Prior Anticoagulants: The patient has taken no previous anticoagulant or antiplatelet agents. After reviewing the risks and benefits, the patient was deemed in satisfactory condition to undergo the procedure. The anesthesia plan was to use monitored anesthesia care (MAC). Immediately prior to administration of medications, the patient was re-assessed for adequacy to receive sedatives. The heart rate, respiratory rate, oxygen saturations, blood pressure, adequacy of pulmonary ventilation, and response to care were monitored throughout the procedure. The physical status of the patient was re-assessed after the procedure. After I obtained informed consent, the scope was passed under direct vision. Throughout the procedure, the patient's blood pressure, pulse, and oxygen saturations were monitored continuously. The Colonoscope was introduced through the anus and advanced to the cecum, identified by appendiceal orifice and ileocecal valve. The colonoscopy was performed without difficulty. The patient tolerated the procedure well. The quality of the bowel preparation was good. Moderate Sedation: Moderate (conscious) sedation was personally administered by an anesthesia professional. The following parameters were monitored: oxygen saturation, heart rate, blood pressure, respiratory rate, EKG, adequacy of pulmonary ventilation, and response to care. Scope In: 7:12:04 AM Scope Withdrawal Time 0 hours 12 minutes 16 seconds Scope Out: 7:28:51 AM Total Procedure Duration Time 0 hours 16 minutes 47 seconds Findings: The perianal and digital rectal examinations were normal. The entire examined colon appeared normal on direct and retroflexion views. Impression: - The entire examined colon is normal on direct and retroflexion views. - No specimens collected. Recommendation: - Discharge patient to home. - Resume previous diet. - Continue present medications. - Repeat colonoscopy in 10 years for screening purposes. Procedure Code(s): --- Professional --- G0121, Colorectal cancer screening; colonoscopy on individual not meeting criteria for high risk CPT copyright 2017 [employer]. All rights reserved. The codes documented in this report are preliminary and upon funeral home associate review may be revised to meet current compliance requirements. Tirso Sanders DO 05/31/2022 7:35:57 AM This report has been signed electronically. Number of Addenda: 0 Note Initiated On: 05/31/2022 7:04 AM
--- NOTE | 2022-05-31 07:37 | OP.CCLET_ITS ---
05/31/2022 Nallely Hogan [address] [place] [address] Re : Colonoscopy procedure for Mendy Stenglein Dear Dr. Hogan This procedure was performed on Tuesday, May 31, 2022. My impressions and recommendations are as follows: Impressions : - The entire examined colon is normal on direct and retroflexion views. - No specimens collected. Recommendations : - Discharge patient to home. - Resume previous diet. - Continue present medications. - Repeat colonoscopy in 10 years for screening purposes. My findings are described in the full procedure note, which is enclosed. If I can be of further assistance, please feel free to contact me at . Sincerely, Tirso Sanders, 05/31/2022 7:35:57 AM This report has been signed electronically.
== END 2022-05-31 08:17 | disposition home or self-care (01) ==
LOC: EN 05:52 → AC 05:52
PROVIDERS: PCP Family Medicine; Referring Provider Family Medicine; Visit Provider Internal Medicine Gastroenterology
PROC: 0DJD8ZZ Inspection of Lower Intestinal Tract, Via Natural or Artificial Opening Endoscopic (ICD-10-PCS; CPT 45378; principal; 2022-05-31 06:55)
DX: Z12.11 Encounter for screening for malignant neoplasm of colon (principal); E10.9 Type 1 diabetes mellitus without complications; Z79.4 Long term (current) use of insulin; E03.9 Hypothyroidism, unspecified; Z80.0 Family history of malignant neoplasm of digestive organs; Z96.41 Presence of insulin pump (external) (internal); Z79.899 Other long term (current) drug therapy
CPT/HCPCS: G0121; J7120; J2405

== ENCOUNTER 2022-08-16 22:58 | Emergency (ER) | payer BC, SELFPAY ==
[2022-08-16 22:59] VITALS: BP 144/72; PULSE 92; RESP 19; TEMP 36.6; O2SAT 99; BMI 31.7
[2022-08-16 23:29] LABS: Mucous, Urine 0 SEEN /hpf (<or=2+); Squamous Epithelial Cells - UA 0 SEEN /hpf (5-10)
[2022-08-16 23:49] LABS: Color, Urine Red (Yellow); Glucose, Dipstick Normal (Normal); Ketone-Dipstick Negative (Negative); Leukocyte Esterase-Dipstick 500 /ul (Negative); Nitrite-Dipstick Negative (Negative); Occult Blood-Urine 250 /ul (Negative); Protein-Dipstick 500 mg/dl (Negative); Urine Bilirubin Dipstick Negative (Negative); Urine Clarity Turbid (Clear); Urine Urobilinogen Normal (Normal)
[2022-08-16 23:56] LABS: Bacteria 2+ /hpf (None Seen); Red Blood Cells-Urine > 100 SEEN /hpf (0-5); White Blood Cells 10-25 SEEN /hpf (0-5)
--- NOTE | 2022-08-17 00:05 | EX.ED.DYSGE1 ---
HPI History of Present Illness Chief Complaint: Complaint Narrative Narrative: Patient is a 57-year-old female who is type I diabetic who is on an insulin pump. She states this morning she awoke and felt like her urination was just off. She states throughout the day she developed urinary frequency urgency and dysuria. She states there is no fever or back pain associated with this. She denies any vaginal discharge or concern for vaginal infection. She states that she was going to wait and see your doctor in the morning but then this evening developed blood with urination. She denies any history of bleeding disorder or blood thinner use but with worsening symptoms comes in for evaluation [facility] Medical History (Updated 08/17/22 @ 01:[address] Leo Bentley, DO) History of echocardiogram Hypothyroid Insulin dependent diabetes mellitus Non-smoker Post-menopausal Thyroid disease Type I diabetes mellitus Wears glasses Home Medications Insulin Basal Pump (Pt's Own) [Pump, Basal] 0 unit subcut UD 12/17/16 [History Last Taken Unknown] levothyroxine 25 mcg tablet 50 mcg PO DAILY 12/17/16 [History Last Taken 12/23/16 05:00] cholecalciferol (vitamin D3) 25 mcg (1,000 unit) capsule (Vitamin D3) 25 mcg PO DAILY 05/27/22 [History Last Taken Unknown] cephalexin 500 mg capsule 500 mg PO TID 7 days #21 caps 08/17/22 [Rx Last Taken Unknown] phenazopyridine 200 mg tablet (Pyridium) 200 mg PO TID PRN pain 3 days #9 tabs 08/17/22 [Rx Last Taken Unknown] Allergy/AdvReac Type Severity Reaction Status Date / Time Sulfa (Sulfonamide AdvReac Nausea Verified 08/16/22 23:00 Antibiotics) Family History (Updated 03/02/22 @ 15:23 by Mervat Pappas) Sister Colon cancer Surgical History History of colonoscopy Hx of breast lump removal Hx of hysterectomy Hx of wisdom tooth extraction Social History Smoking Status: Never smoker ROS ROS ED Constitutional Constitutional ED: Denies chills or fever(s) ENT ENT ED: Denies sore throat Cardiovascular Cardiovascular: Denies chest pain Respiratory/Chest Respiratory/Chest: Denies cough or dyspnea Gastrointestinal Gastrointestinal: Reports abdominal pain; Denies diarrhea, nausea or vomiting Genitourinary Genitourinary ED: Reports dysuria, hematuria and urinary frequency Musculoskeletal Musculoskeletal: Denies back pain or myalgias Integumentary Denies rash Neurologic Neurologic: Denies headache(s) Hematologic/Lymphatic Hematologic/Lymphatic: Denies easy bleeding or easy bruising EXAM Physical Exam Const Vital Signs: 08/16/22 22:59 Temperature 97.9 F Temperature Source Temporal Pulse Rate 92 Respiratory Rate 19 H Blood Pressure 144/72 H Blood Pressure Mean 96 Pulse Ox 99 Oxygen Delivery Method Room Air Positive well nourished and well developed General Appearance ED: well developed; Negative for pallor Eyes PERRL and EOMs intact bilaterally General Eye ED: Negative for pale conjunctiva Neck supple Resp normal respiratory effort and clear to auscultation bilaterally Cardio regular rate and regular rhythm GI non-distended GI Narrative: There is pain on palpation in the suprapubic region otherwise no voluntary guarding or rigidity Auscultation: normoactive bowel sounds Palpation: soft Back/Spine no CVA tenderness Extremity normal to inspection Neuro oriented x3 and CN's II-XII intact bilaterally Sensorium / Orientation: alert Psych mental status grossly normal Skin no rashes or lesions noted General Skin Exam: Negative for pallor MDM MDM MDM Narrative Medical decision making narrative: Patient presented to the ER with stable vitals. She reported increased urinary frequency urgency and dysuria concerning for UTI. Differential diagnosis includes UTI versus kidney stone versus pyelonephritis. As the patient does not have flank pain I do not feel this is kidney stone or the beginning of pyelonephritis. With stable vitals I have low concern for systemic infection/septicemia and therefore do not need in the or blood work with just a urine sample at this time. The urine showed changes consistent with hemorrhagic cystitis with +2 bacteria 10-25 white cells and greater than 100 red. As she is not tachycardic or hypotensive and also afebrile my concern for acute blood loss anemia as well as septicemia is low and do not feel there is need for further evaluation. Patient's urine be sent for culture and to be placed on Keflex secondary to the infectious process but is otherwise safe for discharge. History & Record Review Discussion w/independent historian: Patient and Significant other Lab Data Attestation: I reviewed the patient's lab results. Labs: Laboratory Results - last 24 hr 08/16/22 23:25 Urine Color Red Urine Clarity Turbid Urine pH 7.0 Ur Specific [place] 1.020 Urine Protein 500 H Urine Glucose (UA) Normal Urine Ketones Negative Urine Occult Blood 250 H Urine Nitrite Negative Urine Bilirubin Negative Urine Urobilinogen Normal Ur Leukocyte Esterase 500 H Urine RBC > 100 SEEN Urine WBC 10-25 SEEN Ur Squamous Epith Cells 0 SEEN Urine Bacteria 2+ Urine Mucus 0 SEEN Discharge Plan Triage Chief Complaint: Complaint ED Provider: Leo Bentley Dx/Rx/DC Orders Clinical Impression: Acute hemorrhagic cystitis, Type I diabetes mellitus Instructions: ED Hematuria, UTIs Women Prescriptions: New cephalexin 500 mg capsule 500 mg PO TID 7 Days Qty: 21 0RF phenazopyridine [Pyridium] 200 mg tablet 200 mg PO TID PRN (Reason: pain) 3 Days Qty: 9 0RF No Action levothyroxine 25 MCG tablet 50 mcg PO DAILY Label Comments: THYROID Insulin Basal Pump (Pt's Own) [Pump, Basal] 1 UNIT Pump 0 unit subcut UD Label Comments: NOVALOG: BASAL RATE MIDNIGHT- 7A= 1.25 UNITS/HR 7A-9A= 1.10 UNITS/HR 9A-1400=1.10 UNITS/HR 1400-MIDNIGHT= 1.20 UNITS/HR PT CHECKS BLOOD GLUCOSE WITH MEALS AND PRN, ENTERS CARB COUNT INTO INSULIN PUMP AND IT WILL CALCULATE BOLUS. cholecalciferol (vitamin D3) [Vitamin D3] 25 mcg (1,000 unit) Capsule 25 mcg PO DAILY Primary Care Provider: Nallely Hogan Referrals: Nallely Hogan MD [Primary Care Provider] - Activity Restrictions/Additional Instructions: Please return to the ER for repeat evaluation if you have any further concerns we develop a fever over 100.4 or there is no improvement with the prescribed medication Disposition Disposition: Home, Self Care Discharge Date/Time: 08/17/22 00:18
[2022-08-17] MEDS: Cephalexin 250 MG Capsule 500 MG PO (00:10)
[2022-08-17] MEDS: Phenazopyridine 95 MG Tablet 190 MG PO (00:10)
== END 2022-08-17 00:18 | disposition home or self-care (01) ==
PROVIDERS: Emergency Provider Emergency Medicine; PCP Family Medicine; Visit Provider Emergency Medicine
DX: N30.91 Cystitis, unspecified with hematuria (principal); E10.9 Type 1 diabetes mellitus without complications; Z96.41 Presence of insulin pump (external) (internal); E03.9 Hypothyroidism, unspecified; Z79.899 Other long term (current) drug therapy
CPT/HCPCS: 81001; 87077; 87086; 87088; 87186; 99282